=== PATIENT | female | born 1990 | race Caucasian/White ===

== ENCOUNTER → 2018-06-17 10:35 | Outpatient (CLI) | payer OTHER, SELFPAY ==
--- NOTE | 2018-06-17 10:37 | US_ITS ---
US OB transvaginal: INDICATION: Early ITS.REASON: US OB Dates Spotting during ORDERING PHYSICIAN: Tee Hernandez MD PATIENT AGE: 28 years TECHNIQUE: ultrasound transvaginal scanning. COMPARISON: No previous relevant studies. FINDINGS: Very early intrauterine gestation with expected decidual reaction Questionable/possible tiny pole with a CRL = 0.14 cm. But no heart flicker. No cardiac activity identified. Yolk sac = 0.29 cm. Mean Gestational sac diameter = 1.2 cm ... suggestive of of 2 5 week . Findings will require correlation with serial serum beta-hCG's, To better determine the status of this . It could merely be a very early . The patient has follow-up with Dr. Tom galindo Ovaries appear normal bilaterally. Right ovary measures 3 cm x 1.7 cm does 1.8 cm. Left ovary measures 2.36 cm vessel 0.8 cm x 2 cm. IMPRESSION Very early intrauterine gestation. Mean Gestational sac size 1.2 cm Yolk sac evident, but only very tiny questionable/possible early pole measuring merely 1.4 mm.. No heart flicker identified at this point. Findings require correlation with serum beta-hCG and follow-up to better determine status of this early
== END ==
PROVIDERS: PCP Nurse Practitioner; Visit Provider Nurse Practitioner Obstetrics & Gynecology
DX: O26.841 Uterine size-date discrepancy, first trimester (principal); O26.859 Spotting complicating pregnancy, unspecified trimester
CPT/HCPCS: 76817

== ENCOUNTER → 2018-07-04 15:13 | Outpatient (CLI) | payer OTHER, SELFPAY ==
[2018-07-04 16:13] LABS: Basophils % 0.4 % (0.1-2.0); Eosinophils % 0.4 % (0.1-12.0); Hematocrit 39.6 % (37.0-47.0); Hemoglobin 13.6 g/dL (12.2-16.2); Lymphocytes # 2.1 K/mm3 (0.7-4.5); Lymphocytes % 27.5 % (10-50); Mean Corpuscular HGB Conc 34.3 g/dL (31.8-35.4); Mean Corpuscular Hemoglobin 30.8 pg (27.0-31.2); Mean Corpuscular Volume 89.8 fl (81-99); Mean Platelet Volume 7.9 fl (7.4-10.4); Monocytes # 0.4 K/mm3 (0.1-1.0); Monocytes % 4.7 % (1.7-9.3); Neutrophils # 5.2 K/mm3 (1.8-7.8); Neutrophils % 67.1 % (37.0-80.0); Platelet Count 322 K/mm3 (142-424); Red Blood Count 4.41 M/mm3 (4.20-5.40); Red Cell Distribution Width 12.6 % (11.5-17.5); White Blood Count 7.7 K/mm3 (4.8-10.8)
[2018-07-06 13:55] LABS: Hepatitis B Surface Antigen Negative (Negative); Hepatitis C Antibody <0.1 s/co ratio (0.0-0.9); Rapid Plasma Reagin Ab Titer Non Reactive (NonRea<1:1)
[2018-07-06 13:56] LABS: HIV Screen 4th Generation wRfx Non Reactive (Non Reactive); Rubella Antibodies, IgG 2.26 index (Immune >0.99)
== END ==
PROVIDERS: Visit Provider Nurse Practitioner Obstetrics & Gynecology
DX: Z34.90 Encounter for supervision of normal pregnancy, unspecified, unspecified trimester (principal)
CPT/HCPCS: 36415; 85025; 86592; 86703; 86762; 86850; 87340; 87380; G0432

== ENCOUNTER → 2018-07-19 11:18 | Outpatient (CLI) | payer OTHER, SELFPAY | PROVIDERS: Visit Provider Nurse Practitioner Obstetrics & Gynecology | DX: Z34.90 Encounter for supervision of normal pregnancy, unspecified, unspecified trimester (principal); Z36.0 Encounter for antenatal screening for chromosomal anomalies | CPT/HCPCS: 36415 ==

== ENCOUNTER → 2018-07-22 10:53 | Outpatient (CLI) | payer OTHER, SELFPAY | PROVIDERS: Visit Provider Nurse Practitioner Obstetrics & Gynecology | DX: Z34.90 Encounter for supervision of normal pregnancy, unspecified, unspecified trimester (principal) ==

== ENCOUNTER → 2018-09-27 12:44 | Outpatient (CLI) | payer OTHER, SELFPAY ==
--- NOTE | 2018-09-27 12:49 | US_ITS ---
US OB /maternal detail: INDICATION: ITS.REASON: US OB Complete ORDERING PHYSICIAN: Tee Hernandez MD PATIENT AGE: 28 years TECHNIQUE: ultrasound transabdominal scanning. COMPARISON: No previous relevant studies. FINDINGS: Single viable intrauterine gestation. Cephalic position. Placenta: Anterior High placenta grade 1. There is average amount fluid. The cervix appears satisfactory. Closed and measuring 6 cm in length. Complete survey performed and was unremarkable on the submitted images as in PACS. No discrete anomalies identified on survey imaging by technologist. Active fetus. Three-vessel cord with satisfactory umbilical cord insertion. 4- chamber heart noted. Survey of brain & ventricles unremarkable. Face and neck survey unremarkable. Diaphragm and chest views unremarkable. Abdomen: Both kidneys noted and unremarkable. Stomach noted and satisfactory. Spine: Survey of the spine satisfactory with no anomalies identified nor imaged. Both arms and legs noted. Amniotic Fluid: Adequate. Maternal adnexa: No significant findings. Measurements: Average ultrasound age 20w4d. Gestational Age 20w2d. Estimated due date by ultrasound age 1202/10/2019. Estimated weight 357 grams. BPD = 20w3d OFD = 21w2d HC = 20w2d AC = 20w6d FL = 20w2d Growth Percentile= 57% Heart Rate = 142 Cerebellum = 20w2d Humerus = 20w3d HC/AC is 1.13 (1.09-1.26). CI is 75% (70-86%). FL/BPD is 59%. FL/AC is 21%. IMPRESSION: There is a single live intrauterine gestation in cephalic position. Average ultrasound age is 20 weeks and 4 days. All parameters correlate. No obvious anomalies. Please see above for details
== END ==
PROVIDERS: PCP Nurse Practitioner; Visit Provider Nurse Practitioner Obstetrics & Gynecology
DX: Z36.0 Encounter for antenatal screening for chromosomal anomalies (principal)
CPT/HCPCS: 76811

== ENCOUNTER 2018-10-19 20:01 | Outpatient (CLI) | payer OTHER, SELFPAY ==
[2018-10-19 20:08] VITALS: BMI 28.8
[2018-10-19 20:16] LABS: Microscopic, Urine URINE MICROSCOPIC (MICROSCOPIC)
[2018-10-19 20:36] LABS: Appearance,Urine CLEAR (Clear); Bilirubin,Urine Negative (Negative); Blood, Urine Negative (Negative); Color,Urine YELLOW (Yellow); Glucose,Urine (UA) Negative (Negative); Ketones,Urine Negative (Negative); Leukocyte Esterase,Urine 1+ (Negative); Nitrate,Urine Negative (Negative); Protein,Urine Negative (Negative); Urobilinogen,Urine 0.2 EU/dl (0.2)
[2018-10-19 20:45] LABS: Amphetamine/Metha Screen,Urine Negative ng/mL (<1000); Barbiturates Screen,Urine Negative ng/mL (<200); Benzodiazepines Screen,Urine Negative ng/mL (<200); Cannabinoid Screen,Urine Negative ng/mL (<50); Cocaine Screen,Urine Negative ng/mL (<300); Methadone Screen,Urine Negative ng/mL (<300); Opiate Screen,Urine Negative ng/mL (<300); Phencyclidine Screen,Urine Negative ng/mL (<25)
[2018-10-19 20:47] LABS: Bacteria,Urine Trace /lpf
[2018-10-19 20:52] VITALS: BP 115/61; PULSE 79; RESP 18; TEMP 36.9; O2SAT 96; BMI 28.8
== END 2018-10-19 22:00 | disposition home or self-care (01) ==
LOC: OBOUT 20:02 → OB 20:03
PROVIDERS: PCP Nurse Practitioner; Visit Provider Nurse Practitioner Obstetrics & Gynecology
DX: O23.42 Unspecified infection of urinary tract in pregnancy, second trimester (principal); Z3A.23 23 weeks gestation of pregnancy; M54.5 Low back pain
CPT/HCPCS: 80305; 81001; 87086

== ENCOUNTER 2018-11-12 12:10 | Observation (INO) ==
[2018-11-12 12:28] LABS: Microscopic, Urine URINE MICROSCOPIC (MICROSCOPIC)
[2018-11-12 12:31] LABS: Appearance,Urine CLEAR (Clear); Bilirubin,Urine Negative (Negative); Blood, Urine Negative (Negative); Color,Urine YELLOW (Yellow); Glucose,Urine (UA) Negative (Negative); Ketones,Urine TRACE (Negative); Leukocyte Esterase,Urine Negative (Negative); Protein,Urine Negative (Negative)
[2018-11-12 12:44] LABS: Bacteria,Urine Trace /lpf; WBC,Urine Occasional #/hpf (0-3)
--- NOTE | 2018-11-12 12:45 | Emergency Department Note ---
ED Disposition Clinical Impression: Acute bronchitis, Intractable vomiting with nausea Disposition: Admitted as Observation Condition on Discharge: Serious Instructions: DI for Acute Bronchitis Additional Instructions: Your primary care provider first thing Wednesday. Prescriptions: Cefdinir [Omnicef 300mg Capsule] 300 mg PO BID #14 cap Promethazine HCl [Phenergan 25mg tab] 25 mg PO Q6H PRN #8 tab PRN Reason: Nausea And Vomiting Azithromycin [Z-Kel 250mg Tab*] 250 mg PO UD DOSE PK #6 tab Referrals: Sadia Kohler APRN [Primary Care Provider] - - Critical Care Critical Care Time: No Attestation: On 11/12/18, the high probability of a clinically significant, sudden or life threatening deterioration of the following system(s) required my full and direct attention, intervention and personal management. The time I documented below is in addition to time spent performing reported procedures but includes the following listed in this critical care notation. Medical Decision Making - Medical Records Medical records reviewed: Yes: I reviewed the patient's medical records. - Yung Inquiry Pt receiving controlled substance: No Vital Signs: 11/12/18 12:18 11/12/18 12:47 11/12/18 13:27 Temperature 98.4 F 98.8 F Temperature Source Oral Oral Pulse Rate [Right Radial] 99 H 84 81 Respiratory Rate 18 18 Blood Pressure [Right Arm] 124/65 123/75 119/69 Blood Pressure Mean [Right Arm] 84 91 85 Blood Pressure Source [Right Arm] Automatic Cuff Automatic Cuff Blood Pressure Position [Right Arm] Sitting Sitting 02 Sat by Pulse Oximetry 98 98 99 Oxygen Delivery Method Room Air Room Air 11/12/18 14:12 11/12/18 14:45 11/12/18 14:59 Temperature 98.7 F Temperature Source Oral Pulse Rate [Right Radial] 90 82 75 Respiratory Rate 18 20 Blood Pressure [Right Arm] 109/54 L 100/43 L 95/54 L Blood Pressure Mean [Right Arm] 72 62 67 Blood Pressure Source [Right Arm] Automatic Cuff Automatic Cuff Blood Pressure Position [Right Arm] Sitting Supine 02 Sat by Pulse Oximetry 98 99 98 Oxygen Delivery Method Room Air Room Air 11/12/18 15:30 Temperature Temperature Source Pulse Rate [Right Radial] 84 Respiratory Rate Blood Pressure [Right Arm] 95/50 L Blood Pressure Mean [Right Arm] 65 Blood Pressure Source [Right Arm] Blood Pressure Position [Right Arm] 02 Sat by Pulse Oximetry 100 Oxygen Delivery Method - Lab Data Lab Results 11/12/18 12:20: Urine Color Yellow, Urine Appearance Clear, Urine pH 8.0, Ur Specific [place] 1.010, Urine Protein Negative, Urine Glucose (UA) Negative, Urine Ketones Trace, Urine Blood Negative, Urine Nitrate Negative, Urine Bilirubin Negative, Urine Urobilinogen 2.0, Ur Leukocyte Esterase Negative, Urine RBC None, Urine WBC Occasional, Ur Squamous Epith Cells 5-10, Urine Bacteria Trace 11/12/18 12:26: Influenza Type A Ag Negative, Influenza Type B Ag Negative 11/12/18 12:26: Group A Strep Rapid Negative 11/12/18 12:42: WBC 6.9, RBC 3.58 L, Hgb 11.1 L, Hct 33.4 L, MCV 93.4, MCH 31.0, MCHC 33.2, RDW 12.6, Plt Count 335, MPV 7.9, Neut % (Auto) 85.6 H, Lymph % (Auto) 9.9 L, [place] % (Auto) 4.1, Eos % (Auto) 0.2, Baso % (Auto) 0.2, Neut # (Auto) 5.9, Lymph # (Auto) 0.7, [place] # (Auto) 0.3, Eos # (Auto) 0.0, Baso # (Auto) 0.0, Total Counted 100, Neutrophils % (Manual) 84 H, Lymphocytes % (Manual) 11, Monocytes % (Manual) 5, Platelet Estimate Normal, RBC Morphology Normal 11/12/18 12:42: Sodium 136, Potassium 3.5, Chloride 102, Carbon Dioxide 23, Anio n Gap 14.5, BUN 4 L, Creatinine 0.54 L, Estimated Creat Clear 185, Estimated GFR 133, Est GFR ( Amer) 160, Glucose 95, Calcium 8.6, Total Bilirubin 0.2, AST 17, ALT 27, Alkaline Phosphatase 117 H, Total Protein 6.5, Albumin 2.7 L, Globulin 3.8 H, Albumin/Globulin Ratio 0.7 L Result diagrams: 11/12/18 12:42 11/12/18 12:42 Orders (Tests/Meds): ED MEDICATIONS Discontinued Medications Generic Name Dose Route Start Last Admin Trade Name Freq PRN Reason Stop Dose Admin Acetaminophen 1,000 mg 11/12/18 13:06 11/12/18 13:10 Tylenol 500mg Tablet PO 11/12/18 13:07 1,000 mg ONCE ONE Administration Sodium Chloride 1,000 mls @ 999 mls/hr 11/12/18 12:30 11/12/18 12:47 Sod Chlor 0.9% 1000ml Bag IV 11/12/18 13:30 999 mls/hr .Q1H1M TUNG Administration Sodium Chloride 1,000 mls @ 999 mls/hr 11/12/18 14:15 11/12/18 14:13 Sod Chlor 0.9% 1000ml Bag IV 11/12/18 15:15 999 mls/hr .Q1H1M TUNG Administration Ceftriaxone Sodium 1 gm/ 50 mls @ 100 mls/hr 11/12/18 14:45 11/12/18 14:58 Sodium Chloride IV 11/12/18 15:14 100 mls/hr ONCE ONE Administration Protocol Azithromycin 500 mg/ Sodium 250 mls @ 250 mls/hr 11/12/18 15:00 11/12/18 15:38 Chloride IV 11/12/18 15:01 250 mls/hr ONCE ONE Administration Protocol Promethazine HCl 25 mg 11/12/18 14:12 11/12/18 14:13 Phenergan 25mg/Ml 1ml Vial IV 11/12/18 14:13 25 mg ONCE ONE Administration Sodium Chloride 25 ml 11/12/18 14:12 11/12/18 14:13 Sod Chlor 0.9% 25ml Bag IV 11/12/18 14:13 25 ml ONCE ONE Administration ORDERS Category Date Time Status Chest XR 2 view (NOT portable) [XR chest 2V] Stat Exams 11/12/18 13:49 Taken Strep Screen Confirmation Stat Micro 11/12/18 12:26 Received - Radiology Data #1 Image(s): Chest Image Reviewed: Yes I reviewed the patient's radiology image Supple increased markings in right middle and lower lobe. May be a normal finding but given the fact the patient has wheezing, cough, and a history of fever and chills cover the patient with antibiotics for pneumonia. General Adult HPI - General Chief complaint: Weakness Stated complaint: flu like symptoms 27 weeks Time Seen by Provider: 11/12/18 12:43 Mode of Arrival: Ambulatory Limitations: No Limitations Description of Symptoms (Recalled from ER Triage Doc. by RN): Pt reprots vomiting since approx 1700 yesterday, fever, chills, "charley horses" all over body and body aches. Pt reports she is 26 weeks and 6 days . Pt reports uanable to keep "anything down" since approx 1700 yesterday. - History of Present Illness Onset (ago): day(s) (1) Location: back, upper extremity, lower extremity Radiation: non-radiation Severity: moderate Quality: aching Consistency: constant Relieving factors: none Exacerbating factors: none Associated symptoms: fever/chills, malaise, nausea/vomiting Treatments prior to arrival: none - Related Data Home Medications Medication Instructions Recorded Confirmed Ferrous Sulfate 325 mg PO DAILY 10/19/18 10/19/18 Pnv No.106/Iron/Folate No6/Dha [Ob 1 cap PO DAILY 10/19/18 11/12/18 Complete Gold Softgel] Previous Rx's Medication Instructions Recorded Azithromycin [Z-Kel 250mg Tab*] 250 mg PO UD DOSE PK #6 tab 11/12/18 Cefdinir [Omnicef 300mg Capsule] 300 mg PO BID #14 cap 11/12/18 Promethazine HCl [Phenergan 25mg 25 mg PO Q6H PRN #8 tab 11/12/18 tab] Allergies Allergy/AdvReac Type Severity Reaction Status Date / Time No Known Allergies Allergy Verified 10/17/18 11:00 [facility] History - Hepatitis A Screen Drug use history?: No High risk sexual behaviors?: No History of sexually transmitted infection?: No Currently employed?: No Childcare worker?: No Do you have indoor plumbing?: Yes Do you have electricity?: Yes Attestation statement:: This patient has been screened for Hepatitis A risk factors. I have reviewed the patient's past medical history: Yes Medical History: Reports:: Asthma, Heart Murmur Denies:: Diabetes Mellitus Type 1, Diabetes Mellitus Type 2 Other Medical History: Reports: Anemia Other Surgeries: Yes: Cholecystectomy, Dilation and Curettage. 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 ROS Obtained: Yes Systems reviewed as appropriate & no additional complaints - Constitutional Constitutional: Reports system reviewed and no additional complaints, except as docu, Reports body ache, Reports chills, Reports fatigue, Reports fever(s), Reports malaise, Reports weakness - Eyes Eyes: Reports system reviewed and no additional complaints, except as docu - ENT Ears, Nose, Mouth, and Throat: Reports system reviewed and no additional complaints, except as docu - Cardiovascular Cardiovascular: Reports system reviewed and no additional complaints, except as docu - Respiratory Respiratory: Yes system reviewed and no additional complaints, except as docu - Gastrointestinal Gastrointestingal: Reports: system reviewed and no additional complaints, except as docu, nausea, vomiting - Genitourinary Female Genitourinary: Reports system reviewed and no additional complaints, except as docu - Musculoskeletal Musculoskeletal: Reports system reviewed and no additional complaints, except as docu, Reports muscle aches - Integumentary/Breasts Skin/Breast: Reports system reviewed and no additional complaints, except as docu - Neurologic Neurologic: Reports system reviewed and no additional complaints, except as docu - Endocrine Endocrine: Reports system reviewed and no additional complaints, except as docu - Hematologic/Lymphatic Henatologic/Lymphatic: Reports system reviewed and no additional complaints, except as docu - Allergic/Immunologic Allergic/Immunologic: Reports system reviewed and no additional complaints, except as docu Physical Exam - General General appearance: alert, in distress - Head Head exam: atraumatic, normocephalic, normal inspection - Eye Eye exam: Present: normal appearance, PERRL, EOMI - ENT ENT exam: Present: mucous membranes moist - Neck Neck exam: Present: normal inspection, full ROM, trachea midline. Absent: meningismus, lymphadenopathy - Chest Chest inspection: Present: normal inspection, symmetric chest wall rise. Absent: tenderness - Respiratory Respiratory exam: Present: wheezes - Cardiovascular Cardiovascular exam: Present: regular rate, normal rhythm. Absent: JVD - Abdominal Exam Abdominal exam: Present: soft, normal bowel sounds. Absent: distention, tenderness, guarding - Extremities Exam Extremities exam: Present: normal inspection, full ROM, normal capillary refill. Absent: calf tenderness - Back Exam Back exam: Present: normal inspection. Absent: tenderness - Neurological Exam Neurological exam: Present: alert, oriented X3 - Psychiatric Psychiatric exam: Present: normal affect, normal mood - Skin Skin exam: Present: warm, dry, intact, normal color - Lymphatic Lymphatic Findings: no adenopathy
[2018-11-12 12:51] LABS: Basophils % 0.2 % (0.1-2.0); Eosinophils % 0.2 % (0.1-12.0); Hematocrit 33.4 % (37.0-47.0); Hemoglobin 11.1 g/dL (12.2-16.2); Lymphocytes # 0.7 K/mm3 (0.7-4.5); Lymphocytes % 9.9 % (10-50); Mean Corpuscular HGB Conc 33.2 g/dL (31.8-35.4); Mean Corpuscular Volume 93.4 fl (81-99); Mean Platelet Volume 7.9 fl (7.4-10.4); Monocytes # 0.3 K/mm3 (0.1-1.0); Monocytes % 4.1 % (1.7-9.3); Neutrophils # 5.9 K/mm3 (1.8-7.8); Neutrophils % 85.6 % (37.0-80.0); Platelet Count 335 K/mm3 (142-424); Red Blood Count 3.58 M/mm3 (4.20-5.40); Red Cell Distribution Width 12.6 % (11.5-17.5); White Blood Count 6.9 K/mm3 (4.8-10.8)
[2018-11-12 13:01] LABS: Albumin Level 2.7 gm/dL (3.4-5.0); Albumin/Globulin Ratio 0.7 (1.1-1.8); Anion Gap 14.5 mEq/L (5-15); Bilirubin,Total 0.2 mg/dL (0.2-1.0); Calcium 8.6 mg/dL (8.5-10.1); Globulin 3.8 gm/dl (1.3-3.2); Total Protein,Serum 6.5 gm/dL (6.4-8.2)
[2018-11-12 13:22] LABS: Lymphocytes % 11 % (10-50); Monocytes % 5 % (2-9); Neutrophils % 84 % (42-76); RBC Morphology Normal; Total Cells Counted 100
[2018-11-13 06:47] LABS: Basophils % 0.2 % (0.1-2.0); Eosinophils % 0.1 % (0.1-12.0); Hematocrit 30.9 % (37.0-47.0); Hemoglobin 10.2 g/dL (12.2-16.2); Lymphocytes # 1.2 K/mm3 (0.7-4.5); Lymphocytes % 27.4 % (10-50); Mean Corpuscular HGB Conc 32.9 g/dL (31.8-35.4); Mean Corpuscular Volume 95.7 fl (81-99); Mean Platelet Volume 7.1 fl (7.4-10.4); Monocytes # 0.3 K/mm3 (0.1-1.0); Monocytes % 7.5 % (1.7-9.3); Neutrophils # 2.8 K/mm3 (1.8-7.8); Neutrophils % 64.8 % (37.0-80.0); Platelet Count 313 K/mm3 (142-424); Red Blood Count 3.23 M/mm3 (4.20-5.40); Red Cell Distribution Width 12.7 % (11.5-17.5); White Blood Count 4.3 K/mm3 (4.8-10.8)
[2018-11-13 07:04] LABS: Anion Gap 13.2 mEq/L (5-15); Calcium 8.4 mg/dL (8.5-10.1)
[2018-11-13 09:15] VITALS: BP 107/55
--- NOTE | 2018-11-13 09:44 | History & Physical Report ---
*Admission Date: 11/12/18 *Chief complaint: Cough and nausea vomiting *History of present illness: She is a 28-year-old 6 para 4 aborta 1 who was 30 weeks gestational age. She complains of intractable nausea and vomiting. She also had a cough. Chest x-ray revealed some hazy markings in the right midlung possibly consistent with early pneumonia. As result of the nausea and vomiting and dehydration we elected to admit her and she was started on IV antibiotics as well as Phenergan and fluids. [facility] History I have reviewed the patient's past medical history: Yes Medical History: Reports:: Asthma, Heart Murmur Denies:: Diabetes Mellitus Type 1, Diabetes Mellitus Type 2 *Have you ever received a pneumonia vaccine?: No *Have you received a flu vaccine this season?: No Other Medical History: Reports: Anemia Other Surgeries: Yes: Cholecystectomy, Dilation and Curettage. 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 Review of Systems - Review of Systems Review of systems:: pertinent systems reviewed and negative unless documented below - *Neurologic Reports weakness Meds Allergies Allergy/AdvReac Type Severity Reaction Status Date / Time No Known Allergies Allergy Verified 10/17/18 11:00 Exam Vital signs and Labs for Last 24 Hours: Temp Pulse Resp BP Pulse Ox 98.1 F 76 16 107/55 L 98 11/13/18 09:00 11/13/18 09:00 11/13/18 09:00 11/13/18 09:00 11/13/18 09:00 Laboratory Results - last 24 hr 11/12/18 12:20: Urine Color Yellow, Urine Appearance Clear, Urine pH 8.0, Ur Specific [place] 1.010, Urine Protein Negative, Urine Glucose (UA) Negative, Urine Ketones Trace, Urine Blood Negative, Urine Nitrate Negative, Urine Bilirubin Negative, Urine Urobilinogen 2.0, Ur Leukocyte Esterase Negative, Urine RBC None, Urine WBC Occasional, Ur Squamous Epith Cells 5-10, Urine Bacteria Trace 11/12/18 12:26: Influenza Type A Ag Negative, Influenza Type B Ag Negative 11/12/18 12:26: Group A Strep Rapid Negative 11/12/18 12:42: WBC 6.9, RBC 3.58 L, Hgb 11.1 L, Hct 33.4 L, MCV 93.4, MCH 31.0, MCHC 33.2, RDW 12.6, Plt Count 335, MPV 7.9, Neut % (Auto) 85.6 H, Lymph % (Auto) 9.9 L, [place] % (Auto) 4.1, Eos % (Auto) 0.2, Baso % (Auto) 0.2, Neut # (Auto) 5.9, Lymph # (Auto) 0.7, [place] # (Auto) 0.3, Eos # (Auto) 0.0, Baso # (Auto) 0.0, Total Counted 100, Neutrophils % (Manual) 84 H, Lymphocytes % ([place]) 11, Monocytes % (Manual) 5, Platelet Estimate Normal, RBC Morphology Normal 11/12/18 12:42: Sodium 136, Potassium 3.5, Chloride 102, Carbon Dioxide 23, Anion Gap 14.5, BUN 4 L, Creatinine 0.54 L, Estimated Creat Clear 185, Estimated GFR 133, Est GFR ( Amer) 160, Glucose 95, Calcium 8.6, Total Bilirubin 0.2, AST 17, ALT 27, Alkaline Phosphatase 117 H, Total Protein 6.5, Albumin 2.7 L, Globulin 3.8 H, Albumin/Globulin Ratio 0.7 L 11/13/18 06:00: WBC 4.3 L D, RBC 3.23 L, Hgb 10.2 L, Hct 30.9 L, MCV 95.7, MCH 31.5 H, MCHC 32.9, RDW 12.7, Plt Count 313, MPV 7.1 L, Neut % (Auto) 64.8, Lymph % (Auto) 27.4, [place] % (Auto) 7.5, Eos % (Auto) 0.1, Baso % (Auto) 0.2, Neut # (Auto) 2.8, Lymph # (Auto) 1.2, [place] # (Auto) 0.3, Eos # (Auto) 0.0, Baso # (Auto) 0.0 11/13/18 06:00: Sodium 139, Potassium 4.2, Chloride 107, Carbon Dioxide 23, Anion Gap 13.2, BUN 2 L D, Creatinine 0.43 L D, Estimated Creat Clear 233, Estimated GFR 172, Est GFR ( Amer) 209 D, Glucose 99, Calcium 8.4 L I & O for Last 24 hours: Intake & Output 11/10/18 11/11/18 11/12/18 11/13/18 11:59 11:59 11:59 11:59 Intake Total 1999 Balance 1999 Weight 170 lb - Constitutional no acute distress - *Routine HEENT Exam Head: Present: normocephalic Eye: Present: EOMI, PERRL ENT: Present: mucous membranes moist - *Routine Neck Exam Present: supple, full ROM - *Routine Respiratory Exam Absent: accessory muscle use (good air entry bilaterally), wheezes, crackles - *Routine Cardiovascular Exam Present: RRR. Absent: murmur - *Routine Abdominal Exam Present: soft, normoactive bowel sounds. Absent: tenderness, rebound, guarding, mass - *Routine Rectal Exam Patient deferred: visual exam, digital exam - *Routine Exam Patient deferred: external exam, groin exam, perineal exam - *Routine Extremities Exam Present: full ROM. Absent: cyanosis, edema, calf tenderness - *Routine Skin Exam Present: intact (good color) - *Routine Neurological Exam Present: alert, oriented X3 - Routine Psychiatric Exam Present: normal affect Assessment and Plan (1) Acute bronchitis Current visit: Yes Status: Acute Category: Medical Code(s): J20.9 - Acute bronchitis, unspecified (2) Intractable vomiting with nausea Current visit: Yes Status: Acute Category: Medical Code(s): R11.2 - Nausea with vomiting, unspecified (3) Current visit: No Status: Acute Qualifiers: Category: Medical Code(s): Z34.90 - Encounter for supervision of normal , unspecified, unspecified trimester (4) Asthma affecting in third trimester Current visit: Yes Status: Acute Category: Medical Code(s): O99.513 - Diseases of the respiratory system complicating , third trimester; J45.909 - Unspecified asthma, uncomplicated - Assessment and plan all Dx Assessment and Plan for all problems:: She is admitted for control of her nausea vomiting as well as IV antibiotics for her early pneumonia. She will be started on steroids as well for her acute bronchitis and wheeziness. She will be given antiemetics.
--- NOTE | 2018-11-13 09:48 | Discharge Summary ---
General - General Admission date:: 11/12/18 Discharge date: 11/13/18 HPI HPI: She is a 28-year-old 6 para 4 aborta 1 who was 30 weeks gestational age. She complains of intractable nausea and vomiting. She also had a cough. Chest x-ray revealed some hazy markings in the right midlung possibly consistent with early pneumonia. As result of the nausea and vomiting and dehydration we elected to admit her and she was started on IV antibiotics as well as Phenergan and fluids. Hospital Course Hospital Course: She was started on IV Rocephin as well as IV azithromycin. She is remained afebrile throughout her hospitalization. She has been given fluids and Phenergan and she has no further episodes of nausea or vomiting. She continues to be a little wheezy. She is taking steroids. She has a history of asthma she says. She says that she normally takes a puffer at home. She has not been taking this. Her blood counts and electrolytes are all normal. Objective Vital signs: Temp Pulse Resp BP Pulse Ox 98.1 F 76 16 107/55 L 98 11/13/18 09:00 11/13/18 09:00 11/13/18 09:00 11/13/18 09:00 11/13/18 09:00 no acute distress - *Routine HEENT Exam Head: Present: normocephalic Eye: Present: EOMI, PERRL - *Routine Neck Exam Present: full ROM - *Routine Respiratory Exam Present: rhonchi, wheezes - *Routine Cardiovascular Exam Present: RRR - *Routine Abdominal Exam Present: soft Results Labs on day of discharge: Labs from last 24 hours 11/13/18 11/13/18 11/12/18 06:00 06:00 12:42 WBC 4.3 L D RBC 3.23 L Hgb 10.2 L Hct 30.9 L MCV 95.7 MCH 31.5 H MCHC 32.9 RDW 12.7 Plt Count 313 MPV 7.1 L Neut % (Auto) 64.8 Lymph % (Auto) 27.4 Wake % (Auto) 7.5 Eos % (Auto) 0.1 Baso % (Auto) 0.2 Neut # (Auto) 2.8 Lymph # (Auto) 1.2 Wake # (Auto) 0.3 Eos # (Auto) 0.0 Baso # (Auto) 0.0 Total Counted Neutrophils % (Manual) Lymphocytes % (Manual) Monocytes % (Manual) Platelet Estimate RBC Morphology Sodium 139 136 Potassium 4.2 3.5 Chloride 107 102 Carbon Dioxide 23 23 Anion Gap 13.2 14.5 BUN 2 L D 4 L Creatinine 0.43 L D 0.54 L Estimated Creat Clear 233 185 Estimated GFR 172 133 Est GFR ( Amer) 209 D 160 Glucose 99 95 Calcium 8.4 L 8.6 Total Bilirubin 0.2 AST 17 ALT 27 Alkaline Phosphatase 117 H Total Protein 6.5 Albumin 2.7 L Globulin 3.8 H Albumin/Globulin Ratio 0.7 L Urine Color Urine Appearance Urine pH Ur Specific [place] Urine Protein Urine Glucose (UA) Urine Ketones Urine Blood Urine Nitrate Urine Bilirubin Urine Urobilinogen Ur Leukocyte Esterase Urine RBC Urine WBC Ur Squamous Epith Cells Urine Bacteria Influenza Type A Ag Influenza Type B Ag Group A Strep Rapid 11/12/18 11/12/18 11/12/18 12:42 12:26 12:26 WBC 6.9 RBC 3.58 L Hgb 11.1 L Hct 33.4 L MCV 93.4 MCH 31.0 MCHC 33.2 RDW 12.6 Plt Count 335 MPV 7.9 Neut % (Auto) 85.6 H Lymph % (Auto) 9.9 L Wake % (Auto) 4.1 Eos % (Auto) 0.2 Baso % (Auto) 0.2 Neut # (Auto) 5.9 Lymph # (Auto) 0.7 Wake # (Auto) 0.3 Eos # (Auto) 0.0 Baso # (Auto) 0.0 Total Counted 100 Neutrophils % (Manual) 84 H Lymphocytes % (Manual) 11 Monocytes % (Manual) 5 Platelet Estimate Normal RBC Morphology Normal Sodium Potassium Chloride Carbon Dioxide Anion Gap BUN Creatinine Estimated Creat Clear Estimated GFR Est GFR ( Amer) Glucose Calcium Total Bilirubin AST ALT Alkaline Phosphatase Total Protein Albumin Globulin Albumin/Globulin Ratio Urine Color Urine Appearance Urine pH Ur Specific [place] Urine Protein Urine Glucose (UA) Urine Ketones Urine Blood Urine Nitrate Urine Bilirubin Urine Urobilinogen Ur Leukocyte Esterase Urine RBC Urine WBC Ur Squamous Epith Cells Urine Bacteria Influenza Type A Ag Negative Influenza Type B Ag Negative Group A Strep Rapid Negative 11/12/18 12:20 WBC RBC Hgb Hct MCV MCH MCHC RDW Plt Count MPV Neut % (Auto) Lymph % (Auto) Wake % (Auto) Eos % (Auto) Baso % (Auto) Neut # (Auto) Lymph # (Auto) Wake # (Auto) Eos # (Auto) Baso # (Auto) Total Counted Neutrophils % (Manual) Lymphocytes % (Manual) Monocytes % (Manual) Platelet Estimate RBC Morphology Sodium Potassium Chloride Carbon Dioxide Anion Gap BUN Creatinine Estimated Creat Clear Estimated GFR Est GFR ( Amer) Glucose Calcium Total Bilirubin AST ALT Alkaline Phosphatase Total Protein Albumin Globulin Albumin/Globulin Ratio Urine Color Yellow Urine Appearance Clear Urine pH 8.0 Ur Specific [place] 1.010 Urine Protein Negative Urine Glucose (UA) Negative Urine Ketones Trace Urine Blood Negative Urine Nitrate Negative Urine Bilirubin Negative Urine Urobilinogen 2.0 Ur Leukocyte Esterase Negative Urine RBC None Urine WBC Occasional Ur Squamous Epith Cells 5-10 Urine Bacteria Trace Influenza Type A Ag Influenza Type B Ag Group A Strep Rapid DS: Diagnosis - Discharge Diagnosis (1) Acute bronchitis Status: Acute (2) Intractable vomiting with nausea Status: Acute (3) Status: Acute (4) Asthma affecting in third trimester Status: Acute Discharge Plan - Patient Discharge Instructions ACTIVITY: Continue current activity DIET: continue same diet Additional Instructions: Drink plenty fluids, take medications as prescribed. Patient Instructions: Hyperemesis Gravidarum, DI for Acute Bronchitis, Antepartum Care - Follow up Plan Follow up with: Tee Hernandez MD [Staff Physician] - 11/16/18 10:30 am Disposition: Home, Self-[facility] Medications: Home Medications Medication Instructions Recorded Confirmed Type Promethazine HCl [Phenergan 25mg 25 mg PO Q6HP PRN #14 tab 11/13/18 Rx tab] RX: Azithromycin [Z-Kel 250mg Tab*] 250 mg PO UD DOSE PK #6 tab 11/13/18 Rx methylPREDNISolone [Medrol 4mg 4 mg PO DIRECTED #21 tab 11/13/18 Rx tab] Prescriptions/Medication Reconciliation: New Promethazine HCl [Phenergan 25mg tab] 25 mg PO Q6HP PRN #14 tab PRN Reason: Nausea And Vomiting RX: Azithromycin [Z-Kel 250mg Tab*] 250 mg PO UD DOSE PK #6 tab methylPREDNISolone [Medrol 4mg tab] 4 mg PO DIRECTED #21 tab - Problem Reconciliation Problems Reviewed?: Yes
== END 2018-11-13 11:18 | disposition home or self-care (01) ==
LOC: OB 12:10 → ER 12:10 → OB 16:32
PROVIDERS: ADMIT Nurse Practitioner Obstetrics & Gynecology; ATTEND Nurse Practitioner Obstetrics & Gynecology
CPT/HCPCS: 36415; 71020; 71046; 80048; 80053; 81001; 85007; 85025; 87275; 87276; 87430; 96365; 96366; 96367; 99283; G0378; J0456

== ENCOUNTER → 2018-11-16 09:54 | Outpatient (CLI) | payer OTHER, SELFPAY ==
[2018-11-16 10:57] LABS: Glucose,Fasting 88 mg/dL (60-105)
[2018-11-16 12:40] LABS: Glucose 1 Hour 143 mg/dL (74-106)
== END ==
PROVIDERS: Visit Provider Nurse Practitioner Obstetrics & Gynecology
DX: Z34.90 Encounter for supervision of normal pregnancy, unspecified, unspecified trimester (principal)
CPT/HCPCS: 36415; 82951

== ENCOUNTER 2018-11-18 09:37 | Outpatient (CLI) | payer OTHER, SELFPAY ==
[2018-11-18 10:02] VITALS: BP 106/59; PULSE 74; RESP 18; TEMP 37.1; O2SAT 95
[2018-11-18 10:18] LABS: Microscopic, Urine URINE MICROSCOPIC (MICROSCOPIC)
[2018-11-18 10:24] LABS: Appearance,Urine SL CLOUDY (Clear); Bilirubin,Urine Negative (Negative); Blood, Urine 3+ (Negative); Color,Urine YELLOW (Yellow); Glucose,Urine (UA) Negative (Negative); Ketones,Urine Negative (Negative); Leukocyte Esterase,Urine 3+ (Negative); Nitrate,Urine Negative (Negative); Protein,Urine Negative (Negative); Urobilinogen,Urine 0.2 EU/dl (0.2)
[2018-11-18 10:27] LABS: Amphetamine/Metha Screen,Urine Negative ng/mL (<1000); Barbiturates Screen,Urine Negative ng/mL (<200); Benzodiazepines Screen,Urine Negative ng/mL (<200); Cannabinoid Screen,Urine Negative ng/mL (<50); Cocaine Screen,Urine Negative ng/mL (<300); Methadone Screen,Urine Negative ng/mL (<300); Opiate Screen,Urine Negative ng/mL (<300); Phencyclidine Screen,Urine Negative ng/mL (<25)
[2018-11-18 10:38] LABS: Bacteria,Urine 1+ /lpf; WBC,Urine 20-50 #/hpf (0-3)
== END 2018-11-18 10:47 | disposition home or self-care (01) ==
LOC: OBOUT 09:39 → OB 09:39
PROVIDERS: PCP Nurse Practitioner; Visit Provider Nurse Practitioner Obstetrics & Gynecology
DX: O60.03 Preterm labor without delivery, third trimester (principal); Z3A.27 27 weeks gestation of pregnancy
CPT/HCPCS: 59025; 80305; 81001; 87086

== ENCOUNTER 2018-11-25 12:48 | Outpatient (CLI) | payer OTHER, SELFPAY ==
[2018-11-25 13:22] VITALS: BP 128/74; PULSE 79; RESP 18; TEMP 36.6; O2SAT 98
== END 2018-11-25 13:41 | disposition home or self-care (01) ==
LOC: INF 12:49
PROVIDERS: PCP Nurse Practitioner; Referring Provider Nurse Practitioner Obstetrics & Gynecology; Visit Provider Nurse Practitioner
DX: O99.513 Diseases of the respiratory system complicating pregnancy, third trimester (principal); J45.909 Unspecified asthma, uncomplicated
CPT/HCPCS: 96372

== ENCOUNTER → 2018-11-29 12:01 | Outpatient (CLI) | payer OTHER, SELFPAY ==
[2018-11-29 13:50] LABS: Glucose 1 Hour 163 mg/dL (74-106); Glucose,Fasting 77 mg/dL (60-105)
[2018-11-29 20:16] LABS: Glucose 2 Hour 162 mg/dL (74-106)
[2018-11-29 20:28] LABS: Glucose 3 Hour 142 mg/dL (74-106)
== END ==
PROVIDERS: Visit Provider Nurse Practitioner Obstetrics & Gynecology
DX: Z34.90 Encounter for supervision of normal pregnancy, unspecified, unspecified trimester (principal)
CPT/HCPCS: 36415; 82951

== ENCOUNTER 2018-12-07 15:43 | Outpatient (CLI) | payer OTHER, SELFPAY ==
[2018-12-07 15:57] VITALS: BP 100/56; PULSE 80; RESP 18; TEMP 36.8; O2SAT 95; BMI 29.5
== END 2018-12-07 16:07 | disposition home or self-care (01) ==
LOC: OBOUT 15:44 → OB 15:45
PROVIDERS: PCP Nurse Practitioner; Visit Provider Nurse Practitioner Obstetrics & Gynecology
DX: O99.513 Diseases of the respiratory system complicating pregnancy, third trimester (principal); J45.909 Unspecified asthma, uncomplicated; Z3A.30 30 weeks gestation of pregnancy
CPT/HCPCS: 96372

== ENCOUNTER 2018-12-08 15:53 | Outpatient (CLI) | payer OTHER, SELFPAY ==
[2018-12-08 15:59] VITALS: BP 113/65; PULSE 104; RESP 18; TEMP 36.7; O2SAT 95; BMI 29.5
== END 2018-12-08 16:04 | disposition home or self-care (01) ==
LOC: OBOUT 15:54 → OB 15:55
PROVIDERS: PCP Nurse Practitioner; Visit Provider Nurse Practitioner Obstetrics & Gynecology
DX: O99.513 Diseases of the respiratory system complicating pregnancy, third trimester (principal); J45.909 Unspecified asthma, uncomplicated; Z3A.30 30 weeks gestation of pregnancy
CPT/HCPCS: 96372

== ENCOUNTER → 2018-12-28 13:08 | Outpatient (CLI) | payer OTHER, SELFPAY ==
--- NOTE | 2018-12-28 13:10 | US_ITS ---
PROCEDURE: US OB BPP W/FET-MAT S/D CLINICAL INDICATION: US OB BPP/Growth for LGA and check Vag spotting COMPARISON: OBFEMAT US OB /maternal detail from 09/27/2018 FINDINGS: There is a single live fetus present which is in cephalic presentation. Placenta is anterior and grade 2. Average ultrasound age is 34 weeks 2 days. Estimated weight 2343 g which is 60 second percentile. All parameters correlate BPD 34 weeks 6 days, OFD 34 weeks 6 days, HC 34 weeks 3 days, AC 34 weeks 2 days, FL 33 weeks 3 days. Heart rate is 138 beats per minute. Umbilical artery SD ratio is 2.8 with a resistive index of 0.65. LENARD is 13 cm. Cervical length is low at 2 cm and 1.7 cm with Valsalva. HC/AC is 1.02 CI is 0.8 FL/BPD is 0.75 FL/AC is 0.21 IMPRESSION: Live IUP at 34 weeks 2 days. All parameters correlate. Unremarkable Doppler evaluation of the umbilical artery. Cervical length is low at 2 cm. Please see above for detail Dictated by: Godfrey Vanegas MD 12/28/2018 15:04 Electronically signed by Godfrey Vanegas MD in [place] 12/28/2018 15:04
== END ==
PROVIDERS: Visit Provider Nurse Practitioner Obstetrics & Gynecology
DX: O26.853 Spotting complicating pregnancy, third trimester (principal); O36.63X1 Maternal care for excessive fetal growth, third trimester, fetus 1; Z3A.33 33 weeks gestation of pregnancy
CPT/HCPCS: 76819

== ENCOUNTER 2019-01-03 12:02 | Outpatient (CLI) | payer OTHER, SELFPAY ==
[2019-01-03 12:13] VITALS: BP 112/64; PULSE 92; RESP 18; TEMP 36.8; O2SAT 97; BMI 30.5
[2019-01-03 12:32] LABS: Microscopic, Urine URINE MICROSCOPIC (MICROSCOPIC)
[2019-01-03 12:34] LABS: Appearance,Urine CLEAR (Clear); Bilirubin,Urine Negative (Negative); Blood, Urine Negative (Negative); Color,Urine YELLOW (Yellow); Glucose,Urine (UA) Negative (Negative); Ketones,Urine Negative (Negative); Leukocyte Esterase,Urine Negative (Negative); Nitrate,Urine Negative (Negative); Protein,Urine Negative (Negative); Specific Gravity, Urine <= 1.005 (1.005-1.030); Urobilinogen,Urine 0.2 EU/dl (0.2)
[2019-01-03 12:46] LABS: Bacteria,Urine Trace /lpf
[2019-01-03 12:52] LABS: Amphetamine/Metha Screen,Urine Negative ng/mL (<1000); Barbiturates Screen,Urine Negative ng/mL (<200); Benzodiazepines Screen,Urine Negative ng/mL (<200); Cannabinoid Screen,Urine Negative ng/mL (<50); Cocaine Screen,Urine Negative ng/mL (<300); Methadone Screen,Urine Negative ng/mL (<300); Opiate Screen,Urine Negative ng/mL (<300); Phencyclidine Screen,Urine Negative ng/mL (<25)
== END 2019-01-03 16:04 | disposition home or self-care (01) ==
LOC: OBOUT 12:03 → OB 12:04
PROVIDERS: PCP Nurse Practitioner; Visit Provider Nurse Practitioner Obstetrics & Gynecology
DX: O47.03 False labor before 37 completed weeks of gestation, third trimester (principal); Z3A.34 34 weeks gestation of pregnancy
CPT/HCPCS: 59025; 80305; 81001; 96360; J0595

== ENCOUNTER → 2019-01-09 16:57 | Outpatient (CLI) | payer OTHER, SELFPAY | PROVIDERS: Visit Provider Nurse Practitioner Obstetrics & Gynecology | DX: Z34.90 Encounter for supervision of normal pregnancy, unspecified, unspecified trimester (principal) | CPT/HCPCS: 86403 ==

== ENCOUNTER 2019-01-24 14:12 | Outpatient (CLI) | payer OTHER, SELFPAY ==
[2019-01-24 14:21] VITALS: BMI 31.2
[2019-01-24 14:28] LABS: Microscopic, Urine URINE MICROSCOPIC (MICROSCOPIC)
[2019-01-24 14:31] VITALS: BP 130/70; PULSE 91; RESP 18; TEMP 36.9; O2SAT 99; BMI 31.2
[2019-01-24 14:53] LABS: Appearance,Urine CLEAR (Clear); Bilirubin,Urine Negative (Negative); Blood, Urine Negative (Negative); Color,Urine YELLOW (Yellow); Glucose,Urine (UA) Negative (Negative); Ketones,Urine Negative (Negative); Leukocyte Esterase,Urine TRACE (Negative); Nitrate,Urine Negative (Negative); Protein,Urine Negative (Negative); Specific Gravity, Urine 1.015 (1.005-1.030); Urobilinogen,Urine 0.2 EU/dl (0.2)
[2019-01-24 14:58] LABS: Amphetamine/Metha Screen,Urine Negative ng/mL (<1000); Barbiturates Screen,Urine Negative ng/mL (<200); Benzodiazepines Screen,Urine Negative ng/mL (<200); Cannabinoid Screen,Urine Negative ng/mL (<50); Cocaine Screen,Urine Negative ng/mL (<300); Methadone Screen,Urine Negative ng/mL (<300); Opiate Screen,Urine Positive ng/mL (<300); Phencyclidine Screen,Urine Negative ng/mL (<25)
[2019-01-24 16:39] LABS: Bacteria,Urine Trace /lpf
== END 2019-01-24 15:30 | disposition home or self-care (01) ==
LOC: OBOUT 14:13 → OB 14:13
PROVIDERS: PCP Nurse Practitioner; Visit Provider Nurse Practitioner Obstetrics & Gynecology
DX: O60.03 Preterm labor without delivery, third trimester (principal); Z3A.37 37 weeks gestation of pregnancy
CPT/HCPCS: 59025; 80305; 81001

== ENCOUNTER → 2019-02-01 10:21 | Outpatient (CLI) | payer OTHER, SELFPAY ==
--- NOTE | 2019-02-01 10:23 | US_ITS ---
PROCEDURE: US OB FOLLOW UP CLINICAL INDICATION: US OB BPP Growth- SGA COMPARISON: US OB BPP W/FET-MAT S/D from 12/28/2018 FINDINGS: There is a single live fetus which is in cephalic presentation. heart and body motion noted within FHR 141 beats per minute. Average ultrasound age is 37 weeks 2 days. Following parameters are obtained. BPD 38 weeks 3 days, HC 39 weeks 3 days, AC 34 weeks 3 days, FL 36 weeks 6 days. Biophysical profile is 8 of 8. Amniotic fluid index is normal at 10 cm. Estimated weight is 2801 g which is 11th percentile. The placenta is anterior and grade 2. Biophysical profile is 8 of 8. IMPRESSION: There is a single live fetus which is in cephalic presentation. Average ultrasound age is 37 weeks 2 days. Parameters correlate except for the abdominal circumference which is low at 34 weeks 3 days. Biophysical profile is 8 of 8. Amniotic fluid index is normal at 10 cm. Estimated weight is 2801 g which is 11th percentile which is borderline for small for gestational age/IUGR. The placenta is anterior and grade 2. Biophysical profile is 8 of 8. Dictated by: Godfrey Vanegas MD 02/02/2019 16:00 Electronically signed by Godfrey Vanegas MD in [place] 02/02/2019 16:00
== END ==
PROVIDERS: Visit Provider Nurse Practitioner Obstetrics & Gynecology
DX: O36.5990 Maternal care for other known or suspected poor fetal growth, unspecified trimester, not applicable or unspecified (principal)
CPT/HCPCS: 76816; 76819

== ENCOUNTER 2019-02-04 14:03 | Outpatient (CLI) | payer OTHER, SELFPAY ==
[2019-02-04 14:07] VITALS: BMI 30.9
[2019-02-04 14:27] VITALS: BP 121/72; PULSE 88; RESP 20; TEMP 36.6; O2SAT 96; BMI 30.9
[2019-02-04 14:34] LABS: Microscopic, Urine URINE MICROSCOPIC (MICROSCOPIC)
[2019-02-04 14:41] LABS: Appearance,Urine CLEAR (Clear); Bilirubin,Urine Negative (Negative); Blood, Urine Negative (Negative); Color,Urine YELLOW (Yellow); Glucose,Urine (UA) Negative (Negative); Ketones,Urine Negative (Negative); Leukocyte Esterase,Urine 1+ (Negative); Nitrate,Urine Negative (Negative); Protein,Urine Negative (Negative); Urobilinogen,Urine 0.2 EU/dl (0.2)
[2019-02-04 14:56] LABS: Bacteria,Urine 1+ /lpf; RBC,Urine Occasional #/hpf (0-3)
[2019-02-04 15:05] LABS: Amphetamine/Metha Screen,Urine Negative ng/mL (<1000); Barbiturates Screen,Urine Negative ng/mL (<200); Benzodiazepines Screen,Urine Negative ng/mL (<200); Cannabinoid Screen,Urine Negative ng/mL (<50); Cocaine Screen,Urine Negative ng/mL (<300); Methadone Screen,Urine Negative ng/mL (<300); Opiate Screen,Urine Negative ng/mL (<300); Phencyclidine Screen,Urine Negative ng/mL (<25)
== END 2019-02-04 15:15 | disposition home or self-care (01) ==
LOC: OBOUT 14:06 → OB 14:07
PROVIDERS: PCP Nurse Practitioner; Visit Provider Obstetrics & Gynecology
DX: O26.893 Other specified pregnancy related conditions, third trimester (principal); Z3A.38 38 weeks gestation of pregnancy; R10.2 Pelvic and perineal pain
CPT/HCPCS: 59025; 80305; 81001; 87086

== ENCOUNTER 2019-02-06 05:16 | Inpatient (IN) ==
[2019-02-06 06:18] LABS: Basophils % 0.3 % (0.1-2.0); Eosinophils # 0.1 K/mm3 (0.0-0.4); Eosinophils % 0.5 % (0.1-12.0); Hematocrit 34.9 % (37.0-47.0); Hemoglobin 11.2 g/dL (12.2-16.2); Lymphocytes # 2.8 K/mm3 (0.7-4.5); Lymphocytes % 28.1 % (10-50); Mean Corpuscular HGB Conc 32.1 g/dL (31.8-35.4); Mean Corpuscular Volume 91.8 fl (81-99); Mean Platelet Volume 8.5 fl (7.4-10.4); Monocytes # 0.6 K/mm3 (0.1-1.0); Monocytes % 6.1 % (1.7-9.3); Neutrophils # 6.4 K/mm3 (1.8-7.8); Platelet Count 411 K/mm3 (142-424); Red Cell Distribution Width 13.4 % (11.5-17.5); White Blood Count 9.8 K/mm3 (4.8-10.8)
[2019-02-06 06:42] LABS: Microscopic, Urine URINE MICROSCOPIC (MICROSCOPIC)
[2019-02-06 06:44] LABS: Appearance,Urine CLEAR (Clear); Bilirubin,Urine Negative (Negative); Blood, Urine Negative (Negative); Color,Urine YELLOW (Yellow); Glucose,Urine (UA) Negative (Negative); Ketones,Urine Negative (Negative); Leukocyte Esterase,Urine 2+ (Negative); Protein,Urine Negative (Negative); Specific Gravity, Urine <= 1.005 (1.005-1.030); Urobilinogen,Urine 0.2 EU/dl (0.2)
[2019-02-06 06:53] LABS: Amphetamine/Metha Screen,Urine Negative ng/mL (<1000); Barbiturates Screen,Urine Negative ng/mL (<200); Benzodiazepines Screen,Urine Negative ng/mL (<200); Cannabinoid Screen,Urine Negative ng/mL (<50); Cocaine Screen,Urine Negative ng/mL (<300); Methadone Screen,Urine Negative ng/mL (<300); Opiate Screen,Urine Negative ng/mL (<300); Phencyclidine Screen,Urine Negative ng/mL (<25)
[2019-02-06 06:57] LABS: Bacteria,Urine 1+ /lpf; WBC,Urine 20-50 #/hpf (0-3)
--- NOTE | 2019-02-06 08:32 | Progress Note ---
Labor Note - Subjective: Date: 02/06/19 Time: 07:20 regular contraction - Objective: NST:: Reactive Contractions:: every 2-3 minutes Cervical Dilation:: 3 Effacement:: 75% Station: -2 Membranes: spontaneously ruptured - Fetus: Monitoring?: Yes monitoring type:: Internal and External Comment:: I inserted a scalp clip - Assessment: Labor progressing?: Yes Cephalopelvic disproportion?: No Patient Problems: All Active Problems Acute bronchitis (Acute) Intractable vomiting with nausea (Acute) Asthma affecting in third trimester (Acute) (Acute) - Plan: Anesthesia for epidural?: Yes Continue to labor down?: Yes Plan for ?: No Continue to monitor?: Yes Start pushing?: No
--- NOTE | 2019-02-06 08:34 | History & Physical Report ---
OB - H&P: HPI Antepartum - History of Present Illness Chief complaint: Term , labor History of present illness: She is a 28-year-old 5 para 4 who has a history of labor. She has been having contractions since about 28 weeks. She did receive steroids. As result of that she was augmented at term. - History of Present Criteria for establishing EDC:: LMP confirmed by 1st trimester US care: good care Ultrasounds: normal 1st trimester US Obstetrical complications: labor Medical complications: none [facility] History I have reviewed the patient's past medical history: Yes Medical History: Reports:: Asthma, Heart Murmur Denies:: Diabetes Mellitus Type 1, Diabetes Mellitus Type 2 *Have you ever received a pneumonia vaccine?: No *Have you received a flu vaccine this season?: No Other Medical History: Reports: Anemia Other Surgeries: Yes: Cholecystectomy, Dilation and Curettage. No: Amputation: No Fractures: No - *Social History Smoking Status: Current every day smoker # Packs/Day (cigarettes): 0 Alcohol Intake: never Substance Use Type: denies use *Occupational Status:: unemployed *Travel in the last 8 weeks: None Family Hx:: Asthma, Hypertension PATIENT SAFETY ATTENDANT history: Spontaneous Review of Systems - Review of Systems Review of systems:: pertinent systems reviewed and negative unless documented below Meds Home Medications Medication Instructions Recorded Confirmed Type ferrous sulfate 325 mg (65 mg PO #30 tab 11/16/18 01/30/19 History iron) tablet BKB60-WL 400 mcg-om3 35 mg-dha 25 tab PO tab 11/22/18 01/30/19 History mg-epa 5 mg-fish oil chewable tablet nifedipine 10 mg capsule 10 mg PO QID #120 cap 11/22/18 01/30/19 Rx acetaminophen 300 mg-codeine 30 mg 1 tab PO Q8H PRN #20 tab 01/09/19 01/30/19 Rx tablet loratadine 10 mg tablet 10 mg PO DAILY #30 tab 01/23/19 01/30/19 Rx ondansetron 4 mg disintegrating 4 mg PO Q6H PRN #30 tab 01/23/19 01/30/19 Rx tablet acetaminophen 300 mg-codeine 30 mg 1 tab PO Q8H PRN #20 tab 01/24/19 01/30/19 Rx tablet hydrocodone 5 mg-acetaminophen 325 1 tab PO Q6H PRN #14 tab 01/25/19 01/30/19 Rx mg tablet Allergies Allergy/AdvReac Type Severity Reaction Status Date / Time No Known Allergies Allergy Verified 01/30/19 12:12 OB - H&P: Exam - Constitutional no acute distress - Routine HEENT Exam Head: Present: normocephalic Eye: Present: EOMI, PERRL ENT: Present: mucous membranes moist - Routine Neck Exam Present: supple, full ROM - Routine Respiratory Exam Absent: accessory muscle use (good air entry bilaterally), respiratory distress, wheezes, crackles - Routine Cardiovascular Exam Present: RRR. Absent: murmur - Routine Abdominal Exam Present: soft, normoactive bowel sounds. Absent: tenderness, distended, guarding - Routine Rectal Exam Patient deferred: visual exam, digital exam - Routine Exam Patient deferred: external exam, groin exam, perineal exam - Routine Extremities Exam Present: full ROM. Absent: cyanosis, edema - Routine Skin Exam Present: intact. Absent: cyanosis - Routine Neurological Exam Present: alert, oriented X3 - Routine Psychiatric Exam Present: normal affect OB - Results - Labs Labs: Short CBC 02/06/19 Range/Units 05:50 WBC 9.8 (4.8-10.8) K/mm3 Hgb 11.2 L (12.2-16.2) g/dL Hct 34.9 L (37.0-47.0) % Plt Count 411 (142-424) K/mm3 Urine 02/06/19 Range/Units 05:30 Urine Color Yellow (Yellow) Urine Appearance Clear (Clear) Urine pH 6.0 (5.0-8.5) Ur Specific [place] <= 1.005 (1.005-1.030) Urine Protein Negative (Negative) Urine Glucose (UA) Negative (Negative) OB - A/P Antepartum (1) Normal delivery at term Current visit: Yes Status: Acute - Additional Plan Planning to breastfeed?: No Plan: other Additional Information:: She has been started on IV oxytocin and has had her membranes ruptured.
--- NOTE | 2019-02-06 11:16 | Procedure Note ---
- Delivery Note Delivery Date:: 02/06/19 Delivery Time:: 11:01 Anesthesia Type: Epidural Was labor medically induced?: Yes Induction method: per pitocin protocol Gestational age (weeks): 39 delivered prior to 39 weeks?: No Gender: Female at 1 minute: 9 at 5 minutes: 9 Delivery Procedure:: She is a 28-year-old 5 para 4 who has had multiple episodes of labor. As result of that we elected to deliver her at 39 weeks gestational age. She was started on IV oxytocin and had her membranes ruptured. Under labor epidural she progressed to full dilation and delivered spontaneously a liveborn female child at 11:01 AM. On deliver the head the anterior shoulder then delivered followed by the rest the infant's body atraumatically. The oropharynx and nasopharynx were bulb suction. The baby was vigorous. We allowed the cord to continue to pulsate for 1 minute. The cord was then doubly clamped and cut. The was then placed on the mother's abdomen for further care and the nurses assigned Apgars of 9 at 1 minute and 9 at 5 minutes. We then obtained cord blood as well as cord pH. The pH is currently pending. She received IV oxytocin and using gentle traction on the cord and countertraction on the fundus I was able to easily deliver the placenta intact at 1105. He had a normal three-vessel cord. There were no perineal or vaginal lacerations. Estimated blood loss was approximately 400 cc. Placental Delivery Description: Spontaneous
[2019-02-07 06:52] LABS: Hematocrit 30.9 % (37.0-47.0); Hemoglobin 9.8 g/dL (12.2-16.2)
--- NOTE | 2019-02-07 07:09 | Progress Note ---
[facility] Anesthesia Checklist - Patient Identification Patient Identification: Arm Band, Verbal (Name & ) - Structural Data Admitted From: Inpatient Planned Operative Procedure/s: labor epidural Consent for Planned Operative Procedure(s) Verified: Yes Verified Documents: History and Physical - NPO Status Verified Time NPO: 00:00 - Additional verifications Patient : Yes Anesthesia Reactions: No Hx Blood Transfusions: No Blood Transfusion Reaction: No Cephalosporin Allergy: No Previous Colonoscopy: No - Cardiovascular Assessment Heart Sounds: S1 & S2 Pulse Strength: Baseline Pulse Rhythm: Regular Peripheral Edema: Yes - Airway Assessment C-Spine Mobility Assessed: No TMJ Mobility Assessed: No Dentition: Good Dentition - Neurological Assessment Level of Consciousness: Awake, Alert, Appropriate Hx Seizures: No Numbness or tingling in extremities: No - Anesthesia Plan Anesthesia Risk discussed: Yes Anesthesia Plan: Verified ASA Class: II Anesthesia Type: Epidural [facility] History I have reviewed the patient's past medical history: Yes Medical History: Reports:: Asthma, Heart Murmur Denies:: Diabetes Mellitus Type 1, Diabetes Mellitus Type 2 *Have you ever received a pneumonia vaccine?: No *Have you received a flu vaccine this season?: No Other Medical History: Reports: Anemia Anesthesia experience/problems:: none Other Surgeries: Yes: Cholecystectomy, Dilation and Curettage. No: Amputation: No Fractures: No - *Social History Smoking Status: Current every day smoker # Packs/Day (cigarettes): 0 Alcohol Intake: never Substance Use Type: denies use *Occupational Status:: unemployed *Travel in the last 8 weeks: None Family Hx:: Asthma, Hypertension [employer] SUPERVIS[employer] history: Spontaneous Para: 4
--- NOTE | 2019-02-07 07:35 | Progress Note ---
Internal Medicine - PN: Subj *Date: 02/07/19 *Time: 07:34 Interval history: She is doing well this morning. She is eating and drinking and ambulating. She will have a bilateral tubal ligation this morning. She does complain of some mild congestion. Exam Vital signs and Labs for Last 24 Hours: Temp Pulse Resp BP Pulse Ox 97.6 F 93 H 18 130/67 98 02/07/19 04:08 02/07/19 04:08 02/07/19 04:08 02/07/19 04:08 02/06/19 20:08 Laboratory Results - last 24 hr 02/06/19 05:50: Blood Type A Positive, Antibody Screen Negative 02/06/19 11:10: Cord ABG pH 7.36 02/07/19 06:27: Hgb 9.8 L, Hct 30.9 L I & O for Last 24 hours: Intake & Output 02/04/19 02/05/19 02/06/19 02/07/19 11:59 11:59 11:59 11:59 Weight 182 lb 0.006 oz Microbiology Reports for the Last 24 Hours: Microbiology 02/06/19 05:30 Urine,Clean Catch Urine Culture - Preliminary NO GROWTH AFTER 24 HOURS - Constitutional no acute distress - *Routine Respiratory Exam Present: rhonchi. Absent: accessory muscle use (good air entry bilaterally), wheezes, crackles - *Routine Cardiovascular Exam Present: RRR. Absent: murmur Assessment and Plan (1) Normal delivery at term Current visit: Yes Status: Acute Category: Medical Code(s): O80 - Encounter for full-term uncomplicated delivery - Assessment and plan all Dx Assessment and Plan for all problems:: She is doing well. We will plan for a tubal ligation this morning.
--- NOTE | 2019-02-07 08:08 | Operative Note ---
Date of procedure: 02/07/19 Pre-op Diagnosis:: Desire for sterilization Post-op Diagnosis:: Desire for sterilization Procedure performed:: bilateral tubal ligation Surgeon:: Tee Hernandez MD TERMINAL OPERATIONS MANAGER:: Stanley Bey Anesthesia: spinal Estimated blood loss (mL): 25 Clinical Note:: She is a 28-year-old 5 now para 5 who is 1 day post vaginal delivery. She expressed desire for sterilization. The risks and benefits as well as the irreversibility of tubal ligation were discussed with the patient prior to surgery. Operative findings:: She had a normal appearing uterus. The fallopian tubes were visualized. Operative note:: She was taken to the operating room where spinal anesthesia was found be adequate. She was prepped and draped in normal sterile fashion in the supine position. A small subumbilical incision was made with knife then carried through to the underlying layer of fascia with cautery. The fascia was grasped and then opened in the midline with Metzenbaum scissors. This incision was then extended superiorly and inferiorly. The rectus muscles were then in the midline and the peritoneum identified, tented up and entered sharply with Metzenbaum scissors. We then identified the patient's right tube and followed it to its fimbriated end. The tube was then clamped with Filshie clamps in 2 [address]. This was similar performed on the patient's left side. The peritoneum was then grasped and closed with running 2-0 Vicryl suture. The fascia was closed with running 0 Vicryl suture. The subcutaneous layer was then closed in the opposite direction using running 2-0 Vicryl suture. The skin was closed with running subcuticular 4-0 Monocryl suture. I then injected approximately 30 cc of 0.5% ropivacaine mixed with 1% Xylocaine. Sterile dressings were applied. She tolerated procedure well and was taken to the recovery room in excellent condition. All sponge, instrument and needle counts were correct. The estimated blood loss was less than 25 cc. Condition: stable Disposition: PACU Specimens:: None Complications:: None
--- NOTE | 2019-02-07 08:14 | Progress Note ---
[facility] Anesthesia Record Part I Intake, IV Amount: 500 Estimated blood loss (mL): 25 Urine output (mL): 0 Blood Pressure: 122/67 SaO2: 93 Pulse Rate: 77 Respiratory Rate: 12 Temperature: 97.7 F Patient is:: Awake, Stable Stable to PACU at:: 08:10
--- NOTE | 2019-02-07 08:14 | Progress Note ---
[facility] Anesthesia Record Part II Discharge Time: 08:40 Destination: Obstetric PACU nurse assessment reviewed?: Yes Patient Condition:: Good Anesthesia Complications:: None Swallowing reflex intact?: Yes Cyanosis?: No
--- OUTSIDE RECORDS SUMMARY | 2019-02-07 15:23 | External Medical Summary | Continuity of Care Document ---
:1990 Author Organization [facility] Address [address] [place] [address] Phone Care Team Providers Name Role Phone Edita Primary Care Provider David Attending Provider [place] Attending Provider Provider Primary Care Provider Unavailable Tal Attending Provider Allergies, Adverse Reactions, Alerts No known allergies. Medications Medication Status Dose Units Route Sig Qty Days Start Date End Ins tructions Date Ferrous Active 325 MG Oral Daily October 11:10am Ondansetron Active 4 MG Oral Q6H January 23, 2019 11:03am Loratadine Active 10 MG Oral Daily February 06, 2019 8:59am Problems Active Problems Medical Problem Onset Date Status Asthma affecting in Active third trimester Normal delivery at term Active Active Acute bronchitis Active Intractable vomiting with nausea Active Procedures Procedure Date Performed Status US OB biophysical profile February 01, 2019 active US OB follow up February 01, 2019 completed Group B Streptococcus Screen January 09, 2019 completed (ANSON) US OB BPP w/Fet-Mat & S/D December 28, 2018 completed XR chest 2V November 12, 2018 completed Group A Streptococcus Screen November 12, 2018 completed (ANSON) Relevant Diagnostic Tests and/or Laboratory Data Laboratory Results Test Date/Time Result Interpretation Reference Result Perfo rming Range Comment Site Urine Color October Yellow 2018 10:11am Urine Color October Yellow 2018 12:00pm Urine Color October Yellow 2018 1:42pm Urine Color October Yellow 2018 9:43am Urine Color November Yellow 2018 10:23am Urine Color November Corinna 2018 10:41am Urine Color November Yellow 2018 9:16am Urine Color November Yellow 2018 10:57am Urine Anabela Clear Appearance 2018 10:11am Urine Anabela Clear Appearance 2018 12:00pm Urine October Clear Appearance 2018 1:42pm Urine October Clear Appearance 2018 9:43am Urine November Clear Appearance 2018 10:23am Urine November Clear Appearance 2018 10:41am Urine November Clear Appearance 2018 9:16am Urine November Clear Appearance 2018 10:57am Urine Glucose October Negative (UA) 2018 10:11am Urine Glucose October Negative (UA) 2018 12:00pm Urine Glucose November Negative (UA) 2018 1:42pm Urine Glucose October Negative (UA) 2018 9:43am Urine Glucose November Negative (UA) 2018 10:23am Urine Glucose November Negative (UA) 2018 10:41am Urine Glucose November Negative (UA) 2018 9:16am Urine Glucose November Negative (UA) 2018 10:57am Urine Anabela negative Bilirubin 2018 10:11am Urine Anabela negative Bilirubin 2018 12:00pm Urine October negative Bilirubin 2018 1:42pm Urine October negative Bilirubin 2018 9:43am Urine November negative Bilirubin 2018 10:23am Urine November negative Bilirubin 2018 10:41am Urine November negative Bilirubin 2018 9:16am Urine November negative Bilirubin 2018 10:57am Urine Ketones Anabela Negative 2018 mg/dL 10:11am Urine Ketones Anabela Negative 2018 mg/dL 12:00pm Urine Ketones October Negative 2018 mg/dL 1:42pm Urine Ketones October Negative 2018 mg/dL 9:43am Urine Ketones November Negative 2018 mg/dL 10:23am Urine Ketones November Negative 2018 mg/dL 10:41am Urine Ketones November Trace 5 mg/dL 2018 9:16am Urine Ketones December Negative 2018 mg/dL 10:57am Urine Protein November 28+ 2018 10:11am Urine Protein October Negative 2018 12:00pm Urine Protein November Negative 2018 1:42pm Urine Protein November Negative 2018 9:43am Urine Protein December Negative 2018 10:23am Urine Protein December Negative 2018 10:41am Urine Protein November Trace 2018 9:16am Urine Protein December Negative 2018 10:57am Urine pH Anabela 6.0 2018 10:11am Urine pH Anabela 6.5 2018 12:00pm Urine pH October 7.0 2018 1:42pm Urine pH October 6.0 2018 9:43am Urine pH November 7.0 2018 10:23am Urine pH November 7.5 2018 10:41am Urine pH November 5.5 2018 9:16am Urine pH November 6.5 2018 10:57am Urine Blood October negative 2018 10:11am Urine Blood Anabela negative 2018 12:00pm Urine Blood October negative 2018 1:42pm Urine Blood October negative 2018 9:43am Urine Blood November negative 2018 10:23am Urine Blood November negative 2018 10:41am Urine Blood November nonhemolyzed 2018 trace 9:16am Urine Blood November negative 2018 10:57am Urine Specific October 1.030 Meadow 2018 10:11am Urine Specific October 1.010 Meadow 2018 12:00pm Urine Specific October 1.015 Meadow 2018 1:42pm Urine Specific November 1.010 Meadow 2018 9:43am Urine Specific November 1.010 Meadow 2018 10:23am Urine Specific November 1.015 Meadow 2018 10:41am Urine Specific November 1.020 Meadow 2018 9:16am Urine Specific November 1.010 Meadow 2018 10:57am Urine Anabela 0.2 Urobilinogen 2018 Dipstick 10:11am Urine October 0.2 Urobilinogen 2018 Dipstick 12:00pm Urine November 0.2 Urobilinogen 2018 Dipstick 1:42pm Urine October 0.2 Urobilinogen 2018 Dipstick 9:43am Urine November 0.2 Urobilinogen 2018 Dipstick 10:23am Urine November 0.2 Urobilinogen 2018 Dipstick 10:41am Urine November 0.2 Urobilinogen 2018 Dipstick 9:16am Urine November 0.2 Urobilinogen 2018 Dipstick 10:57am Urine Nitrate Anabela Negative 2018 10:11am Urine Nitrate Anabela Negative 2018 12:00pm Urine Nitrate October Negative 2018 1:42pm Urine Nitrate October Negative 2018 9:43am Urine Nitrate November Negative 2018 10:23am Urine Nitrate December Negative 2018 10:41am Urine Nitrate November Negative 2018 9:16am Urine Nitrate November Negative 2018 10:57am Urine Anabela Negative Leukocyte 2018 Esterase 10:11am Urine Anabela Trace Leukocyte 2018 Esterase 12:00pm Urine October Negative Leukocyte 2018 Esterase 1:42pm Urine October Large Leukocyte 2018 Esterase 9:43am Urine November Small Leukocyte 2018 Esterase 10:23am Urine November Small Leukocyte 2018 Esterase 10:41am Urine November Negative Leukocyte 2018 Esterase 9:16am Urine November Small Leukocyte 2018 Esterase 10:57am White Blood October 4.3 K/mm3 4.8-10.8 Delta: 6.9 [facility], [address] [place] [address] 36 E Count 2018 on Vicki JIMENEZ 50543 6:00am 11/12/18-124 2 Red Blood October 3.23 M/mm3 4.20-5.[address] 36 E Count 2018 Vicki JIMENEZ 16949 6:00am Hemoglobin October 10.2 g/dL 12.2-16.[address] 36 E 2018 [place] [address] 6:00am Hematocrit October 30.9 % 37.0-47.[address] 36 E 2018 Vicki JIMENEZ 58413 6:00am Mean October 95.7 fl 81-99 [facility], [address] [place] [address] 36 E Corpuscular 15th, 2019 Neda JIMENEZ 49416 Volume 6:00am Mean October 31.5 pg 27.0-31.2 [facility], [address] [place] [address] E Corpuscular 2018 Neda JIMENEZ 99190 Hemoglobin 6:00am Mean October 32.9 g/dL 31.8-35.4 [facility], [address] [place] [address] E Corpuscular 2018 Neda JIMENEZ 50720 Hemoglobin 6:00am Concent Red Cell October 12.7 % 11.5-17.5 [facility], [address] [place] [address] E Distribution 2018 Shayna JIMENEZ 75151 Width 6:00am Platelet Count October 313 K/mm3 142-424 [facility], [address] [place] [address] E 2018 Vicki Pratt 6:00am Mean Platelet October 7.1 fl 7.4-10.4 [facility], [address] [place] [address] E Volume 2018 Vicki Pratt 6:00am Neutrophils October 64.8 % 37.0-80.0 [facility], [address] [place] [address] E (%) (Auto) 2018 Gillian Pratt 6:00am Lymphocytes Anabela 27.4 % 10-50 [place] [address] E (%) (Auto) 2018 Gillian Pratt 6:00am Monocytes (%) October 7.5 % 1.7-9.3 [facility], [address] [place] [address] E (Auto) 2018 Vicki Pratt 6:00am Eosinophils Anabela 0.1 % 0.1-12.0 [place] [address] E (%) (Auto) 2018 Gillian Pratt 6:00am Basophils (%) October 0.2 % 0.1-2.0 [facility], [address] [place] [address] E (Auto) 2018 Vicki Pratt 6:00am Neutrophils # October 2.8 K/mm3 1.8-7.8 [place] [address] E (Auto) 2018 Vicki TONY 04545 6:00am Lymphocytes # October 1.2 K/mm3 0.7-4.5 [facility], [address] [place] [address] 36 E (Auto) 2018 [place] TONY 34942 6:00am Monocytes # October 0.3 K/mm3 0.1-1.0 [facility], [address] [place] [address] 36 E (Auto) 2018 [place] TONY 50696 6:00am Eosinophils # Anabela 0.0 K/mm3 0.0-0.4 [facility], [address] [place] [address] 36 E (Auto) 2018 [place] TONY 94706 6:00am Basophils # Anabela 0.0 K/mm3 0-0.2 [facility], [address] [place] [address] E (Auto) 2018 [place] TONY 46476 6:00am Differential October 100 [facility], [address] [place] [address] 36 E Total Cells 2018 Neda JIMENEZ 68518 Counted 12:42pm Neutrophils % October 84 % 42-76 [facility], [address] [place] [address] E (Manual) 2018 Vicki JIMENEZ 88624 12:42pm Lymphocytes % October 11 % 10-50 [facility], [address] [place] [address] E (Manual) 2018 Vicki JIMENEZ 07269 12:42pm Monocytes % October 5 % 2-9 [facility], [address] [place] [address] E (Manual) 2018 Vicki JIMENEZ 60203 12:42pm Platelet October Normal [facility], [address] [place] [address] 36 E Estimate 2018 Vicki JIMENEZ 70822 12:42pm Red Blood Cell October Normal [facility], [address] [place] [address] 36 E Morphology 2018 Gillian JIMENEZ 79999 12:42pm Urine Color October Yellow Yellow [facility], [address] [place] [address] 36 E 2018 Vicki JIMENEZ 44747 12:20pm Urine Color December Yellow Yellow [facility], [address] [place] [address] 36 E 2018 Vicki JIMENEZ 22206 2:20pm Urine Anabela Clear Clear [facility], [address] [place] [address] 36 E Appearance 2018 Gillian JIMENEZ 24644 12:20pm Urine November Clear Clear [facility], [address] [place] [address] 36 E Appearance 2018 Gillian JIMENEZ 53991 2:20pm Urine pH Anabela 8.0 5.0-8.5 [facility], [address] [place] [address] 36 E 2018 Vicki JIMENEZ 38345 12:20pm Urine pH November 7.0 5.0-8.5 [facility], [address] [place] [address] 36 E 2018 Vicki JIMENEZ 39433 2:20pm Urine Specific Anabela 1.010 1.005-1.03 [facility], [address] [place] [address] 36 E Meadow 2018 0 Vicki JIMENEZ 78024 12:20pm Urine Specific November 1.015 1.005-1.03 [facility], [address] [place] [address] 36 E Meadow 2018 0 Vicki JIMENEZ 92828 2:20pm Urine Protein Anabela Negative Negative [facility], [address] [place] [address] 36 E 2018 Vicki JIMENEZ 75435 12:20pm Urine Protein November Negative Negative [facility], [address] [place] [address] 36 E 2018 Vicki JIMENEZ 33876 2:20pm Urine Glucose Anabela Negative Negative [facility], [address] [place] [address] E (UA) 2018 Vicki JIMENEZ 18580 12:20pm Urine Glucose November Negative Negative [facility], [address] [place] [address] 36 E (UA) 2018 Vicki JIMENEZ 41023 2:20pm Urine Ketones Anabela Trace Negative [facility], [address] [place] [address] 36 E 2018 Vicki JIMENEZ 30440 12:20pm Urine Ketones November Negative Negative [facility], [address] [place] [address] 36 E 2018 Vicki JIMENEZ 93158 2:20pm Urine Blood Anabela Negative Negative [facility], [address] [place] [address] 36 E 2018 Vicki JIMENEZ 73972 12:20pm Urine Blood November Negative Negative [facility], [address] [place] [address] 36 E 2018 Vicki JIMENEZ 51372 2:20pm Urine Nitrate Anabela Negative Negative [facility], [address] [place] [address] 36 E 2018 Vicki JIMENEZ 45093 12:20pm Urine Nitrate November Negative Negative [facility], [address] [place] [address] 36 E 2018 Vicki JIMENEZ 15980 2:20pm Urine Anabela Negative Negative [facility], [address] [place] [address] 36 E Bilirubin 2018 Vicki JIMENEZ 62847 12:20pm Urine November Negative Negative [facility], [address] [place] [address] E Bilirubin 2018 Vicki TONY 66144 2:20pm Urine Anabela 2.0 EU/dl [facility], [address] [place] [address] 36 E Urobilinogen 2018 Shayna JIMENEZ 57322 12:20pm Urine November 0.2 EU/dl [facility], [address] [place] [address] 36 E Urobilinogen 2018 Shayna JIMENEZ 14116 2:20pm Urine Anabela Negative Negative [facility], [address] [place] [address] E Leukocyte 2018 Vicki JIMENEZ 05376 Esterase 12:20pm Urine November Trace Negative [facility], [address] [place] [address] E Leukocyte 2018 Vicki JIMENEZ 27967 Esterase 2:20pm Urine RBC Anabela None #/hpf [facility], [address] [place] [address] 36 E 2018 Vicki JIMENEZ 29438 12:20pm Urine WBC Anabela Occasional [facility], [address] [place] [address] 36 E 2018 #/hpf Vicki JIMENEZ 77593 12:20pm Urine WBC November 3-5 #/hpf [facility], [address] [place] [address] 36 E 2018 Vicki JIMENEZ 34964 2:20pm Urine Squamous October 5-10 #/hpf [facility], [address] [place] [address] 36 E Epithelial 2018 Gillian JIMENEZ 47818 Cells 12:20pm Urine Squamous November 5-10 #/hpf [facility], [address] [place] [address] 36 E Epithelial 2018 Gillian JIMENEZ 83467 Cells 2:20pm Urine Bacteria Anabela Trace /lpf NONE [facility], [address] [place] [address] 36 E 2018 Vicki JIMENEZ 96622 12:20pm Urine Bacteria November Trace /lpf NONE [facility], [address] [place] [address] 36 E 2018 Vicki JIMENEZ 90720 2:20pm Sodium Level October 139 mmol/L 136-145 [facility], [address] [place] [address] 36 E 2018 Vicki JIMENEZ 65261 6:00am Potassium October 4.2 mmoL/L 3.5-5.1 K MAY BE [facility], [address] [place] [address] E Level 2018 FALSEY Vicki JIMENEZ 54087 6:00am ELEVATED DUE TO SLIGHT HEMOLYSIS Chloride Level October 107 mmol/L 98-107 [facility], [address] [place] [address] E 2018 Vicki JIMENEZ 00563 6:00am Carbon Dioxide October 23 mmol/L 21.0-32.0 [facility], [address] [place] [address] E Level 2018 Vicki JIMENEZ 23347 6:00am Anion Gap October 13.2 mEq/L 5-15 [facility], [address] [place] [address] E 2018 Vicki JIMENEZ 92611 6:00am Blood Urea October 2 mg/dL -18 Delta: 4 on [facility], [address] [place] [address] E Nitrogen 201811/12/18- Shayna JIMENEZ 02423 6:00am 2 Creatinine October 0.43 mg/dL 0.55-1.02 Delta: 0.54 [facility], [address] [place] [address] E 2018 on Vicki JIMENEZ 25251 6:00am 11/12/18- 2 Estimated October 233 mL/min 0-300 [facility], [address] [place] [address] E Creatinine 2018 Gillian JIMENEZ 98642 Clearance 6:00am Estimated GFR October 209 ML/MIN >59 Delta: 160 [facility], [address] [place] [address] 36 E ( 2018 on Vicki JIMENEZ 96346 Tajik) 6:00am 11/12/18 2 Estimat October 172 ml/min >59 [facility], [address] [place] [address] E Glomerular 2018 Gillian JIMENEZ 14876 Filtration 6:00am Rate Glucose Level October 99 mg/dL 74-106 [facility], [address] [place] [address] E 2018 Vicki JIMENEZ 74544 6:00am Fasting October 88 mg/dL 60-105 [facility], [address] [place] [address] 36 E Glucose 2018 Vicki JIMENEZ 43268 10:13am Fasting November 77 mg/dL 60-105 [facility], [address] [place] [address] 36 E Glucose 2018 Vicki TONY 87880 12:02pm Glucose 1 Hour October 143 mg/dL 74-106 [facility], [address] [place] [address] 36 E 2018 [place] TONY 14228 10:13am Glucose 1 Hour November 163 mg/dL 74-106 [facility], [address] [place] [address] 36 E 2018 [place] TONY 94261 12:02pm Glucose 2 Hour November 162 mg/dL 74-106 [facility], [address] [place] [address] E 2018 [place] TONY 63669 12:02pm Glucose 3 Hour November 142 mg/dL 74-106 [facility], [address] [place] [address] E 2018 Vicki TONY 11621 12:02pm Urine Fasting Anabela Negative [facility], [address] [place] [address] E Glucose 2018 mg/dL Vicki JIMENEZ 68733 10:13am Urine Fasting October Negative [facility], [address] [place] [address] E Glucose 2018 mg/dL Vicki TONY 22913 12:02pm Urine Glucose Anabela Negative [facility], [address] [place] [address] E 1 Hour 2018 mg/dL Vicki JIMENEZ 55307 10:13am Urine Glucose October Negative [facility], [address] [place] [address] E 1 Hour 2018 mg/dL Vicki TONY 66744 12:02pm Urine Glucose November Trace mg/dL [facility], [address] [place] [address] E 2 Hour 2018 Vicki JIMENEZ 38578 12:02pm Urine Glucose November 1+ mg/dL [facility], [address] [place] [address] E 3 Hour 2018 Vicki JIMENEZ 81121 12:02pm Calcium Level October 8.4 mg/dL 8.5-10.1 [facility], [address] [place] [address] E 2018 Vicki JIMENEZ 58154 6:00am Total October 0.2 mg/dL 0.2-1.0 [facility], [address] [place] [address] E Bilirubin 2018 Vicki JIMENEZ 09574 12:42pm Aspartate October 17 U/L 15-37 [facility], [address] [place] [address] 36 E Amino Transf 2018 Shayna JIMENEZ 98494 (AST/SGOT) 12:42pm Alanine October 27 U/L 12-78 [facility], [address] [place] [address] E Aminotransfera 2018 Emir JIMENEZ 37914 se (ALT/SGPT) 12:42pm Total Protein October 6.5 gm/dL 6.4-8.2 [facility], [address] [place] [address] 36 E 2018 [place] [address] 12:42pm Albumin October 2.7 gm/dL 3.4-5.0 [facility], [address] [place] [address] E 2018 [place] [address] 12:42pm Globulin Anabela 3.8 gm/dl 1.3-3.2 [facility], [address] [place] [address] E 2018 [place] [address] 12:42pm Albumin/Globul Anabela 0.7 1.1-1.8 [facility], [address] [place] [address] E in Ratio 2018 Vicki JIMENEZ 20168 12:42pm Alkaline October 117 U/L 46-116 [facility], [address] [place] [address] E Phosphatase 2018 Neda sincere TONY 21257 12:42pm Influenza Type Anabela Negative Negative [facility], [address] [place] [address] E A Antigen 2018 [place] [address] 12:26pm Influenza Type Anabela Negative Negative [facility], [address] [place] [address] E B Antigen 2018 Vicki JIMENEZ 70455 12:26pm Group A Anabela Negative Negative [facility], [address] [place] [address] E Streptococcus 2018 Cynjonny cuevana TONY 95949 Rapid 12:26pm Urine Opiates December Positive This is an [facility], [address] [place] [address] E Screen 2018 ng/mL UNCONFIRMED Neda na TONY 82016 2:20pm result. This result is for medical purposes and/or treatment only. Urine November Negative [facility], [address] [place] [address] E Barbituates 2018 ng/[place] [address] Screen 2:20pm Urine November Negative [facility], [facility] 36 E Phencyclidine 2018 ng/[place] [address] Screen 2:20pm Urine December Negative [facility], [facility] 36 E Amphetamines 2018 ng/[place] [address] Screen 2:20pm Urine November Negative [facility], [address] [place], [place] [address]way 36 E Methadone 2018 ng/[place] [address] Screen 2:20pm Urine November Negative [facility], [address] [place] [address] 36 E Benzodiazepine 2018 ng/[place] [address] s Screen 2:20pm Urine Cocaine December Negative [facility], [address] [place] [address] 36 E Screen 2018 ng/[place] [address] 2:20pm Urine December Negative [facility], [address] [place], [place] [address]way 36 E Marijuana 2018 ng/[place] [address] (THC) Screen 2:20pm Microbiology Results Procedure Source Result Collection Result Result Performin g Date/Time Date/Time Comment Site Group A Throat Negative October [facility], [address] [place] [address] 36 E Streptococcus for Group A 2018 [place] [address] Screen (ANSON) Streptococc 12:26pm 11:49am us. Group B Vaginal Negative December [facility], [address] [place] [address] 36 E Streptococcus for Group B 2018 [place] [address] Screen (ANSON) Streptococc 10:39am 8:47am us. Diagnostic Imaging Reports Report Dictated Date/Time Dictated By Status Radiology Report November 12, 2018 Canelo Travis completed 2:22pm [facility] [address] [facility] [address] [place] [address] XRay R eport Sig vandana Patient: Jackelin Parikh MR#: [id number] : 1990 Acct:[id number] Age/Sex: 28 / F ADM Date: 9 Loc: OB 279-[address]: Tee Hernandez MD Ordering Physician: Stanton Hernandes MD Date of Service: 09/14/19 Procedure(s): XR chest 2V Accession Number(s): [id number] cc: Canelo Travis ; Sadia Kohler PRN~ PROCEDURE: XR CHEST 2V Patient Age:28Y CLINICAL HISTORY: pain history of smok ing asthma Coughing weakness nausea vomiting 1 wee k. Patient is was shielded. ER physician ordered and pat ient authorized x-ray COMPARISON: No exams were available fo r comparison FINDINGS: The heart is upper normal in size with left. Nathalie and mediastinal structures satisfactory. Chest wall in T-spine unremarkable Slight prominence of pulmonary vascular ity of most likely merely reflects the state of . No pl eural effusions nor Alexandra B lines nor overt CHF. But there is also mild accentuation markings towards the right base but nonspecific but most likely reflects additional density anteriorly at the ri ght base, as seen on lateral view. Difficult to totally exclude min imal pneumonia right base particularly if symptoms to suggest suc h. The left lung appears clear and clear a t left lung base IMPRESSION: Mild pulmonary vascular prominence-most likely reflecting state Heart upper normal size Slight coarsened markings, right lung b ase. May merely reflect atelectasis along with overlying densit y, but difficult to exclude a subtle early infiltrate right lung base .. Clinical correlation required. Dictated by: Kael Travis MD 019 16:36 Electronically signed by Howard Travis MD in [place] 11/13/2018 16:36 Radiology Report December 28, 2018 Godfrey Vanegas MD completed 2:29pm [facility] [address] [place] [facility] [address] [place] [address] Ultrasoun d Report Sig vandana Patient: Jackelin Parikh MR#: [id number] : 1990 Acct:[id number] Age/Sex: 28 / F ADM Date: 9 Loc: RAD Attending Dr: Tee Hernandez MD Ordering Physician: Tee Hernandez MD Date of Service: 12/28/18 Procedure(s): US OB BPP w/Fet-Mat & S/D Accession Number(s): [id number] cc: Godfrey Vanegas MD; Provider,Referral MD~ PROCEDURE: US OB BPP W/FET-MAT S/D CLINICAL INDICATION: US OB BPP/Growth for LGA and check Vag spotting COMPARISON: OBFEMAT US OB /matern al detail from 09/27/2018 FINDINGS: There is a single live fetus present wh ich is in cephalic presentation. Placenta is anterior and grade 2. Average ultrasound age is 34 weeks 2 days. Estimated feta l weight 2343 g which is 60 second percentile. All parameters jonathan elate BPD 34 weeks 6 days, OFD 34 weeks 6 day s, HC 34 weeks 3 days, AC 34 weeks 2 days, FL 33 weeks 3 days. Hear t rate is 138 beats per minute. Umbilical artery SD ratio is 2 .8 with a resistive index of 0.65. LENARD is 13 cm. Cervical length i s low at 2 cm and 1.7 cm with Valsalva. HC/AC is 1.02 CI is 0.8 FL/BPD is 0.75 FL/AC is 0.21 IMPRESSION: Live IUP at 34 weeks 2 days. All manuel eters correlate. Unremarkable Doppler evaluation of the umbilical art tonya. Cervical length is low at 2 cm. Please see above for detail Dictated by: Godfrey Vanegas MD 12/28/2018 15:04 Electronically signed by Godfrey Vanegas in [place] 12/28/2018 15:04 Radiology Report February 01, 2019 Godfrey Vanegas MD completed 11:04am [place] [id number] [facility] [address] [id number] Ultrasoun d Report Sig vandana Patient: Jackelin Parikh MR#: [id number] : 1990 Acct:[id number] Age/Sex: 28 / F ADM Date: 9 Loc: RAD Attending Dr: Tee Hernandez MD Ordering Physician: Tee Hernandez MD Date of Service: 02/01/19 Procedure(s): US OB follow up Accession Number(s): [id number] cc: Godfrey Vanegas MD; Provider,Referral MD~ PROCEDURE: US OB FOLLOW UP CLINICAL INDICATION: US OB BPP Growt h- SGA COMPARISON: US OB BPP W/FET-MAT S/D from 12/28/2018 FINDINGS: There is a single live fetus which is i n cephalic presentation. heart and body motion noted withi n FHR 141 beats per minute. Average ultrasound age is 37 weeks 2 da ys. Following parameters are obtained. BPD 38 weeks 3 days, HC 39 w eeks 3 days, AC 34 weeks 3 days, FL 36 weeks 6 days. Biophysical profile is 8 of 8. Amniotic fluid index is normal at 10 cm. Estima dom weight is 2801 g which is 11th percentile. The placenta is anterior and grade 2. Biophysical profile is 8 of 8. IMPRESSION: There is a single live fetus which is i n cephalic presentation. Average ultrasound age is 37 weeks 2 da ys. Parameters correlate except for the abdominal circumference which is low at 34 weeks 3 days. Biophysical profile is 8 of 8. Amniotic fluid index is normal at 10 cm . Estimated weight is 2801 g which is 11th percentile which is borderline for small for gestational ag e/IUGR. The placenta is anterior and grade 2. Biophysical profile is 8 of 8. Dictated by: Godfrey Vanegas MD 02/02/2019 16:00 Electronically signed by Godfrey Vanegas in OV 02/02/2019 16:00 Health Concerns Concerns bronchitis, nausea/vomiting Advance Directives Advance Directive Response Recorded Date/Time Does the patient have an No January 23, 2019 11:05am advanced directive on file? Living Will No January 23, 2019 11:05am Does the patient have an No January 09, 2019 11:09am advanced directive on file? Living Will No January 09, 2019 11:09am Does the patient have an No January 17, 2019 10:06am advanced directive on file? Living Will No January 17, 2019 10:06am Does the patient have an No December 27, 019 9:57am advanced directive on file? Living Will No December 27, 2018 9 :57am Does the patient have an No November 28, 2018 11:43am advanced directive on file? Living Will No November 28, 2018 11:43am Chief Complaint and Reason for Visit Chief Complaint Intractable vomiting, acute bronchitis LAB WORK NST injection LAB WORK injection 2nd injection vaginal bleeding nst, 35wks, contractions OFFICE DROP OFF nst, 38wks contractions SGA NST Being Induced this AM Reason for Visit Acute bronchitis Asthma affecting i n third trimester Intractable vomiting with na usea Normal delivery at term Encounters Encounter Location(s) Arrival/Admit Date Discharge/Depart Provi chel(s) Date Discharged [facility] Physician November 12, November 13, 2018 Chel jason Hernandez Inpatient Group-Obstetric 2019 4:31pm 11:18am Registered [facility] Physician November 16, Tee roche Clinical Group-Laboratory 2018 9:54am Departed [facility] Physician November 16, November 16, 2018 Chel jason Hernandez Physician/Provi Group-Women's 2018 10:43am 11:29am [facility] Visit Registered [facility] Physician November 18, November 18, 2018 Chel jason Hernandez Inpatient Group-Women's 2018 9:37am 10:47am MD Stefany Hernandez Departed [facility] Physician November 22, November 22, 2018 Chel jason Hernandez Physician/Provi Group-Women's 2018 9:22am 10:21am [facility] Visit Departed [facility] Physician November 25, November 25, 2018 Chel jason Hernandez Physician/Provi Group-Women's 2018 11:33am 12:16pm [facility] Visit Departed [facility] Physician November 25, November 25, 2018 Emmastanton Kohler Clinical Group-Infusion 2018 12:48pm 1:41pm , EP TECHNOLOGIST Therapy ChemoTherapy Departed [facility] Physician November 28, November 28, 2018 Chel jason Hernandez Physician/Provi Group-Women's 2018 9:59am 11:45am [facility] Visit Registered [facility] Physician November 29, 2018 Tee rose Clinical Group-Laboratory 12:01pm Departed [facility] Physician December 07, 2018 December 07, 2018 Moises Hernandez Physician/[facility] Group-Women's 2:30pm 3:37pm [facility] Visit Departed [facility] Physician December 07, 2018 December 07, 2018 Moises Hernandez Clinical Group-OB 3:43pm 4:07pm Outpatient Service Departed [facility] Physician December 08, 2018 December 08, 2018 [facility]-OB 3:53pm 4:04pm Outpatient Service Departed [facility] Physician December 19, 2018 December 19, 2018 [facility] Physician/[facility] 1:04pm 2:55pm [facility] Visit Departed [facility] Physician December 27, 2018 December 27, 2018 [facility] Physician/[facility]-Women's 9:09am 10:07am [facility] Hernandez Visit Registered [facility] Physician December 28, 2018 Tee cardoza Clinical Group-Radiology 1:08pm Departed [facility] Physician January 02, 2019 January 02, 2019 [facility] Physician/[facility]-Women's 9:56am 10:37am [facility] Hernandez Visit Registered [facility] Physician January 03, 2019 January 03, 2019 [facility] Inpatient Group-Women's 12:02pm 4:04pm MD Stefany Hernandez Departed [facility] Physician January 09, January 09, 2019 Tee Hernandez Physician/Provi Group-Women's 2018 10:25am 11:07am [facility] Visit Registered [facility] Physician January 09, Tee Hernandez Clinical Group-Lab Drop 2018 4:57pm MD Off to [facility] Departed [facility] Physician January 17, January 17, 2019 Tee Hernandez Physician/Provi Group-Women's 2018 9:12am 9:58am [facility] Visit Departed [facility] Physician January 23, January 23, 2019 Tee Hernandez Physician/Provi Group-Women's 2018 10:22am 11:19am [facility] Visit Departed [facility] Physician January 24, January 24, 2019 Tee Hernandez Clinical Group-OB 2019 2:12pm 3:30pm Outpatient Service Departed [facility] Physician January 30, 2019 January 30, 2019 [facility] Physician/Provi Group-Women's 11:24am 12:25pm [facility] Visit Registered [facility] Physician February 01, 2019 Tee cardoza Clinical Group-Radiology 10:21am Registered [facility] Physician February 04, 2019 February 04, 2019 Olman Parada Inpatient Group-Just for 2:03pm 3:15pm MD Vences Registered [facility] Physician February 06, 2019 Tee cardoza Inpatient Group-Women's 5:16am MD Stefany Hernandez Registered [facility] Physician February 07, Tee Hernandez Inpatient Group- 2019 2:55pm Recent Diagnosis Onset Date Acute bronchitis Asthma affecting in third trimester Intractable vomiting with nausea Normal delivery at term Assessments See care plan goalsSee care plan goalsSee care plan goals Functional Status Observation Response Date Recorded Ambulation Ability Independent January 24, 2019 3:10pm Ambulation Ability Independent November 25, 2018 1:40pm Ambulation Ability Independent November 13, 2018 11:18am Functional status ambulatory January 23, 2019 11:05am Functional status ambulatory January 09, 2019 11:09am Functional status ambulatory December 07, 2018 3: 49pm Functional status ambulatory January 30, 2019 2 :05pm Functional status ambulatory January 17, 2019 10:06am Functional status ambulatory January 02, 2019 1 0:35am Functional status ambulatory December 27, 2018 9 :57am Functional status ambulatory December 19, 2018 5 :43pm Functional status ambulatory November 28, 2018 11:43am Functional status ambulatory November 25, 2018 12:05pm Functional status ambulatory November 22, 2018 10:06am Functional status ambulatory November 16, 2018 5:15pm Goals Acute Goals Nursing Diagnosis: Knowledge Deficit D isease/Condition Goal(s): Education of di sease process Instruction(s): Follow provider p daria/instructions (See attached discharge education) Follow/up with primary care provider as instructed in discharge packet Nursing Diagnosis: Knowledge Deficit D isease/Condition Goal(s): Education of di sease process Instruction(s): Follow provider p daria/instructions (See attached discharge education) Follow/up with primary care provider as instructed in discharge packet Nursing Diagnosis: Knowledge Deficit D isease/Condition Goal(s): Education of di sease process Instruction(s): Follow provider p daria/instructions (See attached discharge education) Follow/up with primary care provider as instructed in discharge packet Nursing Diagnosis: Knowledge Deficit D isease/Condition Goal(s): Education of di sease process Instruction(s): Follow provider p daria/instructions (See attached discharge education) Follow/up with primary care provider as instructed in discharge packet Nursing Diagnosis: Knowledge Deficit D isease/Condition Goal(s): Education of di sease process Instruction(s): Follow provider p daria/instructions (See attached discharge education) Follow/up with primary care provider as instructed in discharge packet Nursing Diagnosis: Knowledge Deficit D isease/Condition Goal(s): Education of di sease process Instruction(s): Follow provider p daria/instructions (See attached discharge education) Follow/up with primary care provider as instructed in discharge packet Nursing Diagnosis: Knowledge Deficit D isease/Condition Goal(s): Education of di sease process Instruction(s): Follow provider p daria/instructions (See attached discharge education) Follow/up with primary care provider as instructed in discharge packet Ambulatory Goals Patient verbalizes understanding of dise ase process/healthy behaviors. Patient to follow plan of care. Education provid ed. Immunizations Immunization Event Date Not Given Dose Shoe Worker Lot Vac cine Reason Number Number Informatio n Statement (VIS) Deta il Fluzone, October intradermal 2012 Mental Status Observation Response Date Recorded Able to Read No December 08, 2018 3 :59pm Able to Write No December 08, 2018 3 :59pm Able to Read Yes January 24, 2019 2:31pm Able to Write Yes January 24, 2019 2:31pm Able to Read Yes December 07, 2018 3: 57pm Able to Write Yes December 07, 2018 3: 57pm Able to Read Yes November 12, 2018 5:00pm Able to Write Yes November 12, 2018 5:00pm Medical Equipment No Medical Equipment Information available Insurance Providers Guarantor Jackelin Parikh Address [address] [address] Contact Info. Home Phone: Payer Policy Id Coverage Id Subscriber's Subscriber Effective Expi ration Name Id Date Date [employer] [id number] Jackelin Parikh [id number] [facility] Self Pay Self N/A Plan of Treatment Follow up as ordered by primary care provider Follow up as ordered by primary care provider Follow up as ordered by primary care provider She continues to do well. She still has some lower abdominal pain and I suspect that it is just a result of pressure on her pubic bone. Her cervix has slightly changed and has thinned out slightly but otherwise is still only 2 cm. Baby's head is still ballotable. We will see her back again next week. We discussed the risks of her tubal ligation surgery that includes bleeding, infection, injuries to the bowel and bladder. We discussed the irreversibility of tubal ligation. All questions were answered and consents were signed. We did group B strep today. I told her I would call her in a couple of Tylenol 3's. See her back again next week. Her cervix has not changed. She continues to have lower abdominal pain. She is doing well. She has just occasional rare contractions. Her cervix has not changed. She said she had some vaginal bleeding but today there is no bleeding when I examined her cervix. Since she has been having some occasional contractions and it is her fifth baby will go ahead and give her course of steroids today. I will see her back in 2 weeks time unless she has any issues. She is doing well. She continues to have occasional contractions as well as lower pelvic pain. Her cervix has not changed. We will plan to deliver her next week when she is 39 weeks. In the meantime we will get an ultrasound to check the baby's size and fluid. She measures up smaller than her dates She continues to do well. We will see her back again in a week. She continues to have low back pain but there is been no change in her cervix. She would like a tubal so we will arrange that for the day after her delivery. I told her we would deliver her by 39 weeks. We will see her back next week. We will get another ultrasound should she does have some pinkish discharge. She also measures up slightly larger than her dates so we will get a growth on the baby as well. She continues to have contractions. Her nonstress test today was reactive. Her cervix is not really changed. She had one small contraction on the monitor. She continues with her nifedipine and bedrest. She has had steroids earlier in the . She continues to have occasional contractions. There were no contractions on the nonstress test today. We will see her back again next week. She will continue with her nifedipine. She continues to have wheeziness and cough. She had a shot of Rocephin yesterday and will take another one today. She is taking nebulizers 4 times daily. We have called her in Flovent to take twice daily to see if this helps as well. We will see her back in 3 days time to see how she is doing. She continues to have occasional contractions. This morning she had some bright red bleeding. On examination the cervix is 2 cm 25%. There was some pinkish-brown discharge in the vagina. Ultrasound shows that the fetus is in the cephalic presentation and There has been good growth. There is adequate fluid. The placenta is well away from the cervix. We will go ahead and start nifedipine 10 mg up to 4 times a day. I will see her back in 3 days time. She will return if she has any further episodes of regular contractions. I suspect that the bleeding was from her cervix and slight changes in the cervix that has occurred as result of the ultrasound. She is much improved from last time we saw her when she was admitted for pneumonia last week. She seems to be doing much better. We will see her back again in 2 weeks time. Future Tests Future scheduled test information is unavailable Pending Tests Pending diagnostic test information is unavailable Future Visits Future appointment information is unavailable Referrals to Other Providers Reason for Referral Start Provider Provider Contact Provider Address Referral Date Information Admission to [facility] February 072018 [facility] Future Procedures Future procedure information is unavailable Future Medications Future medication information is unavailable Patient Instructions Hyperemesis Gravidarum DI for Acute Bronchitis Antepartum Care Diet How to Do Kick Counts Antepartum Care Labor Diet Acute Bronchitis Diet Diet Diet Antepartum Care Antepartum Care Diet Diet Diet Antepartum Care False Labor How to Breastfeed Your Baby Diet How to Breastfeed Your Baby Diet Diet Antepartum Care Diet Antepartum Care How to Care for a Surgical Wound Depression Hemorrhage [facility] Post Discharge Instructions Social History Observation Status Date of Observation Patient currently November 12, 2018 Assigned Sex Female Vital Signs Vital Reading Result Reference Range Collection Date/ Time Height 162.56 cm November 12, 2018 5:54pm Weight 77.11 kg November 12, 2018 5:54pm Body Temperature 98.1 [degF] 97.6-99.6 November 13, 2018 9:00am Heart Rate 76 /min 60-90 November 13, 2018 9:00am Respiratory rate 16 /min 12-24 November 13, 2018 9:00am Oxygen saturation by 98 % 95-100 October 302018 Pulse oximetry 9:00am BP Systolic 107 mm[Hg] 110-140 November 13, 2018 9:00am BP Diastolic 55 mm[Hg] 60-90 November 13, 2018 9:00am BMI (Body Mass Index) 29.2 kg/m2 November 12, 2018 5:54pm Height 162.56 cm November 16, 2018 11:18am Weight 79.03 kg November 16, 2018 11:18am BP Systolic 110 mm[Hg] 110-140 November 16, 2018 11:18am BP Diastolic 52 mm[Hg] 60-90 November 16, 2018 11:18am BMI (Body Mass Index) 29.9 kg/m2 November 16, 2018 11:18am Height 162.56 cm November 18, 2018 10:02am Weight 79.37 kg November 18, 2018 10:02am Body Temperature 98.7 [degF] 97.6-99.6 November 18, 2018 10:02am Heart Rate 74 /min 60-90 November 18, 2018 10:02am Respiratory rate 18 /min -November 18, 2018 10:02am Oxygen saturation by 95 % 95-100 October 312018 Pulse oximetry 10:02am BP Systolic 106 mm[Hg] 110-140 November 18, 2018 10:02am BP Diastolic 59 mm[Hg] 60-90 November 18, 2018 10:02am BMI (Body Mass Index) 30.0 kg/m2 November 18, 2018 10:02am Height 162.56 cm November 22, 2018 9:49am Weight 77.56 kg November 22, 2018 9:49am BP Systolic 110 mm[Hg] 110-140 November 22, 2018 9:49am BP Diastolic 56 mm[Hg] 60-90 November 22, 2018 9:49am BMI (Body Mass Index) 29.3 kg/m2 November 22, 2018 9:49am Height 162.56 cm November 25, 2018 11:54am Weight 78.64 kg November 25, 2018 11:54am BP Systolic 110 mm[Hg] 110-140 November 25, 2018 11:54am BP Diastolic 60 mm[Hg] 60-90 November 25, 2018 11:54am BMI (Body Mass Index) 29.7 kg/m2 November 25, 2018 11:54am Body Temperature 97.9 [degF] 97.6-99.6 November 25, 2018 1:22pm Heart Rate 79 /min 60-90 November 25, 2018 1:22pm Respiratory rate 18 /min -November 25, 2018 1:22pm Oxygen saturation by 98 % 95-100 October 312018 Pulse oximetry 1:22pm BP Systolic 128 mm[Hg] 110-140 November 25, 2018 1:22pm BP Diastolic 74 mm[Hg] 60-90 November 25, 2018 1:22pm Height 162.56 cm November 28, 2018 10:37am Weight 79.15 kg November 28, 2018 10:37am BP Systolic 112 mm[Hg] 110-140 November 28, 2018 10:37am BP Diastolic 80 mm[Hg] 60-90 November 28, 2018 10:37am BMI (Body Mass Index) 29.9 kg/m2 November 28, 2018 10:37am Height 162.56 cm December 07 3:11pm Weight 78.58 kg December 07 3:11pm BP Systolic 110 mm[Hg] 110-140 December 07 3:11pm BP Diastolic 58 mm[Hg] 60-90 December 07 3:11pm BMI (Body Mass Index) 29.7 kg/m2 November 3:11pm Height 162.56 cm December 07 3:57pm Weight 78.10 kg December 07 3:57pm Body Temperature 98.2 [degF] 97.6-99.6 December 07 3:57pm Heart Rate 80 /min 60-December 07 3:57pm Respiratory rate 18 /min -December 07 3:57pm Oxygen saturation by 95 % 95-100 November Pulse oximetry 3:57pm BP Systolic 100 mm[Hg] 110-140 December 07 3:57pm BP Diastolic 56 mm[Hg] 60-90 December 07 9 3:57pm BMI (Body Mass Index) 29.5 kg/m2 November 3:57pm Height 162.56 cm December 08 3:59pm Weight 78.01 kg December 08 3:59pm Body Temperature 98.1 [degF] 97.6-99.6 December 08 019 3:59pm Heart Rate 104 /min 60-December 08 3:59pm Respiratory rate 18 /min -December 08 2 019 3:59pm Oxygen saturation by 95 % 95-100 November Pulse oximetry 3:59pm BP Systolic 113 mm[Hg] 110-140 December 08 3:59pm BP Diastolic 65 mm[Hg] 60-90 December 08 3:59pm BMI (Body Mass Index) 29.5 kg/m2 December 082018 3:59pm Height 162.56 cm December 19 1:35pm Weight 80.28 kg December 19, 1:35pm BP Systolic 122 mm[Hg] 110-140 December 19, 1:35pm BP Diastolic 60 mm[Hg] 60-90 December 19, 1:35pm BMI (Body Mass Index) 30.4 kg/m2 December 192018 1:35pm Height 162.56 cm December 27, 9:18am Weight 80.45 kg December 27, 9:18am BP Systolic 120 mm[Hg] 110-140 December 27, 9:18am BP Diastolic 80 mm[Hg] 60-90 December 27, 9:18am BMI (Body Mass Index) 30.4 kg/m2 December 272018 9:18am Height 162.56 cm January 02, 10:11am Weight 80.79 kg January 02, 10:11am BP Systolic 118 mm[Hg] 110-140 January 02, 10:11am BP Diastolic 68 mm[Hg] 60-90 January 02, 10:11am BMI (Body Mass Index) 30.5 kg/m2 January 022018 10:11am Height 162.56 cm January 03, 12:13pm Weight 80.73 kg January 03, 12:13pm Body Temperature 98.3 [degF] 97.6-99.6 January 03, 2 019 12:13pm Heart Rate 92 /min 60-January 03, 12:13pm Respiratory rate 18 /min -January 03, 2 019 12:13pm Oxygen saturation by 97 % 95-100 December Pulse oximetry 12:13pm BP Systolic 112 mm[Hg] 110-140 January 03, 12:13pm BP Diastolic 64 mm[Hg] 60-90 January 03, 12:13pm BMI (Body Mass Index) 30.5 kg/m2 January 032018 12:13pm Height 162.56 cm January 09, 2 019 10:44am Weight 81.19 kg January 09, 2 019 10:44am BP Systolic 106 mm[Hg] 110-140 January 09, 2 019 10:44am BP Diastolic 72 mm[Hg] 60-90 January 09, 2 019 10:44am BMI (Body Mass Index) 30.7 kg/m2 December 302018 10:44am Height 162.56 cm January 17, 2 019 9:17am Weight 81.64 kg January 17, 2 019 9:17am BP Systolic 118 mm[Hg] 110-140 January 17, 2 019 9:17am BP Diastolic 70 mm[Hg] 60-90 January 17, 2 019 9:17am BMI (Body Mass Index) 30.9 kg/m2 December 302018 9:17am Height 162.56 cm January 23, 2 019 10:28am Height 162.56 cm January 24, 2 019 2:31pm Weight 82.55 kg January 24, 2 019 2:31pm Body Temperature 98.4 [degF] 97.6-99.6 January 24, 2019 2:31pm Heart Rate 91 /min 60-January 24, 019 2:31pm Respiratory rate 18 /min -January 24, 2019 2:31pm Oxygen saturation by 99 % 95-100 January 242018 Pulse oximetry 2:31pm BP Systolic 130 mm[Hg] 110-140 January 24, 2 019 2:31pm BP Diastolic 70 mm[Hg] 60-90 January 24, 2 019 2:31pm BMI (Body Mass Index) 31.2 kg/m2 December 312018 2:31pm Height 162.56 cm January 30 12:11pm Weight 81.70 kg January 30 12:11pm BP Systolic 110 mm[Hg] 110-140 January 30 12:11pm BP Diastolic 64 mm[Hg] 60-90 January 30 12:11pm BMI (Body Mass Index) 30.9 kg/m2 January 302018 12:11pm Height 162.56 cm February 04 2:27pm Weight 81.64 kg February 04 2:27pm Body Temperature 97.8 [degF] 97.6-99.6 February 04, 019 2:27pm Heart Rate 88 /min 60-February 04 2:27pm Respiratory rate 20 /min -February 04, 019 2:27pm Oxygen saturation by 96 % 95-100 January Pulse oximetry 2:27pm BP Systolic 121 mm[Hg] 110-140 February 04 2:27pm BP Diastolic 72 mm[Hg] 60-90 February 04 2:27pm BMI (Body Mass Index) 30.9 kg/m2 February 042018 2:27pm Height 162.56 cm February 06 8:59am Weight 82.55 kg February 06 8:59am Body Temperature 97.7 [degF] 97.6-99.6 February 07, 2019 8:14am Heart Rate 70 /min -February 07, 019 8:40am Respiratory rate 18 /min -February 07, 2019 8:40am Oxygen saturation by 96 % 95-100 February 072018 Pulse oximetry 8:40am BP Systolic 119 mm[Hg] 110-140 February 07, 2 019 8:40am BP Diastolic 71 mm[Hg] 60-90 February 07, 019 8:40am BMI (Body Mass Index) 31.2 kg/m2 February 062018 8:59am Hospital Discharge Instructions Additional Instructions Drink plenty fluids, take medications as prescribed.
[2019-02-08 05:28] VITALS: BP 134/67
--- NOTE | 2019-02-08 09:31 | Discharge Summary ---
General - General Admission date:: 02/06/19 Discharge date: 02/08/19 HPI HPI: She is a 28-year-old 5 now para 5 who is 39 weeks gestational age. She has had labor since about 28 weeks and as result of that we elected to augment her labor at term. She also expressed desire for sterilization. Hospital Course Hospital Course: She was started on IV oxytocin had her membranes ruptured. She progressed under labor epidural to full dilation and delivered spontaneously a liveborn female child. On her first day she underwent a bilateral tubal ligation through a small subumbilical incision. She has done well postoperatively and has remained afebrile throughout her hospitalization. She does complain of cough. She is a heavy smoker. She is discharged home to follow-up with me in approximately 2 weeks time. She will continue with her vitamins and iron. She is given a prescription for Percocet 5/325 number 20 tablets. She was given a prescription for Motrin 400 mg number 40 tablets. She was given a prescription for Bactrim for her cough and she also had a small amount of redness just below her incision. It is really only been 24 hours post surgery though. She also was given a prescription for a nicotine patch. She was given the usual instructions with respect to limiting her activity, driving and sexual activity. Her condition on discharge is stable and improved. Rhogam Administration: Not Indicated Objective Vital signs: Temp Pulse Resp BP Pulse Ox 98.5 F 87 18 134/67 96 02/08/19 04:08 02/08/19 04:08 02/08/19 04:08 02/08/19 04:08 02/07/19 19:41 no acute distress - *Routine Abdominal Exam Present: soft, surgical scars DS: Diagnosis - Discharge Diagnosis (1) Normal delivery at term Status: Acute Discharge Plan - Patient Discharge Instructions ACTIVITY: No heavy lifting DIET: continue same diet Additional Instructions: NO HEAVY LIFTING OF STRENUOUS ACTIVITY NOTHING IN VAGINA FOR 6 WEEKS NO DRIVING WHILE TAKING PRESCRIPTION PAIN MEDICATION Patient Instructions: How to Care for a Surgical Wound, Depression, Hemorrhage, [facility] Post Discharge Instructions - Follow up Plan Home Medications: Home Medications Medication Instructions Recorded Confirmed Type ferrous sulfate 325 mg (65 mg 325 mg PO DAILY #30 tab 11/16/18 02/06/19 History iron) tablet ondansetron 4 mg disintegrating 4 mg PO Q6H PRN #30 tab 01/23/19 02/06/19 Rx tablet Loratadine [Allergy Relief] 10 mg PO DAILY 02/06/19 02/06/19 History Ibuprofen [Motrin 400mg 400 mg PO Q4HP PRN #40 tab 02/08/19 Rx tablet] Nicotine [Nicotine Patch 21 mg TD DAILY #30 patch 02/08/19 Rx 21mg/24hrs] Oxycodone HCl/Acetaminophen 1 - 2 tab PO Q4-6H PRN #20 tab 02/08/19 Rx [Percocet 5/325mg tablet] Prescriptions/Medication Reconciliation: New Ibuprofen [Motrin 400mg tablet] 400 mg PO Q4HP PRN #40 tab PRN Reason: Moderate Pain Oxycodone HCl/Acetaminophen [Percocet 5/325mg tablet] 1 - 2 tab PO Q4-6H PRN #20 tab PRN Reason: Severe Pain Nicotine [Nicotine Patch 21mg/24hrs] 21 mg TD DAILY #30 patch Continued ondansetron 4 mg disintegrating tablet 4 mg PO Q6H PRN #30 tab PRN Reason: nausea and vomiting ferrous sulfate 325 mg (65 mg iron) tablet 325 mg PO DAILY #30 tab Loratadine [Allergy Relief] 10 mg PO DAILY - Problem Reconciliation Problems Reviewed?: Yes
== END 2019-02-08 12:20 | disposition home or self-care (01) | DRG 798 ==
LOC: OB 05:16
PROVIDERS: ADMIT Nurse Practitioner Obstetrics & Gynecology; ATTEND Nurse Practitioner Obstetrics & Gynecology
CPT/HCPCS: C1758

== ENCOUNTER → 2021-11-19 12:47 | Outpatient (CLI) | payer OTHER, SELFPAY ==
--- NOTE | 2021-11-19 12:47 | US_ITS ---
FINAL REPORT CLINICAL HISTORY: Rt. Ovarian cyst seen on ct FINDINGS: Transvaginal sonographic images of the pelvis were obtained. The uterus measures 9.4 x 4.4 x 4.7 cm. The endometrium is within normal limits. The right ovary measures 4.0 x 2.1 x 1.7 cm. The left ovary measures 2.5 x 1.4 x 2.0 cm. There are small cysts or follicles in both ovaries. No pelvic free fluid is identified. IMPRESSION: Small cysts or follicles in both ovaries. Reviewed, Interpreted and Dictated by Connor Aburto MD Transcribed by Liyah Andrews Authenticated and [facility]
== END ==
PROVIDERS: PCP Nurse Practitioner; Visit Provider Nurse Practitioner Obstetrics & Gynecology
DX: R10.2 Pelvic and perineal pain (principal); N83.209 Unspecified ovarian cyst, unspecified side
CPT/HCPCS: 76830

== ENCOUNTER → 2022-01-07 10:23 | Outpatient (CLI) | payer OTHER, SELFPAY ==
[2022-01-07 11:03] LABS: Basophils # 0.1 K/mm3 (0-0.2); Basophils % 1.1 % (0.1-2.0); Eosinophils # 0.2 K/mm3 (0.0-0.4); Eosinophils % 2.8 % (0.1-12.0); Hematocrit 41.5 % (37.0-47.0); Hemoglobin 12.9 g/dL (12.2-16.2); Lymphocytes # 2.7 K/mm3 (0.7-4.5); Lymphocytes % 34.5 % (10-50); Mean Corpuscular Hemoglobin 29.3 pg (27.0-31.2); Mean Corpuscular Volume 94.6 fl (81-99); Mean Platelet Volume 8.1 fl (7.4-10.4); Monocytes # 0.4 K/mm3 (0.1-1.0); Monocytes % 5.6 % (1.7-9.3); Neutrophils # 4.3 K/mm3 (1.8-7.8); Platelet Count 379 K/mm3 (142-424); Red Blood Count 4.39 M/mm3 (4.20-5.40); Red Cell Distribution Width 13.8 % (11.5-17.5); White Blood Count 7.7 K/mm3 (4.8-10.8)
[2022-01-07 11:18] LABS: Alanine Aminotransferase 28 U/L (12-78); Albumin Level 4.1 g/dl (3.5-5.0); Albumin/Globulin Ratio 1.6 (1.1-1.8); Alkaline Phosphatase 96 U/L (38-126); Anion Gap 12.8 mEq/L (5-15); Aspartate Amino Transferase 27 U/L (14-36); Blood Urea Nitrogen 14 mg/dl (7-17); Calcium 9.5 mg/dl (8.4-10.2); Carbon Dioxide 28 mmol/L (22.0-30.0); Chloride 104 mmol/L (98-107); Estimated Glomerular Filt Rate 115 ml/min (>60); GFR (African American) 139 ML/MIN (>60); Globulin 2.5 g/dL (1.3-3.2); Glucose 64 mg/dl (74-100); Potassium 3.8 mmoL/L (3.5-5.1); Sodium 141 mmol/L (136-145); Total Protein,Serum 6.6 g/dl (6.3-8.2)
[2022-01-07 11:26] LABS: Bilirubin,Total < 0.1 mg/dl (0.2-1.3)
[2022-01-07 11:44] LABS: HCG,Quantitative < 2 mIU/ml (0-5.42)
== END ==
PROVIDERS: Visit Provider Nurse Practitioner Obstetrics & Gynecology
DX: Z01.812 Encounter for preprocedural laboratory examination (principal); N92.0 Excessive and frequent menstruation with regular cycle
CPT/HCPCS: 36415; 80053; 84702; 85025

== ENCOUNTER 2022-01-09 07:04 | Day surgery (SDC) | payer OTHER, SELFPAY ==
[2022-01-09 07:26] VITALS: BP 123/77; PULSE 68; RESP 18; TEMP 36.3; O2SAT 100; BMI 34.8
--- NOTE | 2022-01-09 08:08 | EXP.ANES.CKL ---
PFSH PFS Surgical History Hx of cholecystectomy Hx of dilation and curettage Hx of tubal ligation Family History (Updated 01/09/22 @ 07:28 by Claudia Ward RN) Other Family history of COPD (chronic obstructive pulmonary disease) Family history of hyperlipidemia Social History (Updated 01/09/22 @ 07:30 by Claudia Ward RN) Smoking Status: Current every day smoker tobacco type: cigarettes packs per day: 1 pack-years: 20 alcohol intake: never substance use type: denies use current occupational status: employed and unemployed Travel in the last 8 weeks: None adopted: No caregiver/support person: No foster care: No special tyrell needs: No agree to transfusion: No do you feel safe at home: Yes victim of physical abuse: No victim of emotional abuse: No victim of sexual abuse: No would you like helpful sources: No [facility] Anesthesia Checklist Patient Identification Patient Identification: Arm Band Structural Data Admitted From: Home Planned Operative Procedure/s: Hysteroscopy, D&C, Novasure Ablation Consent for Planned Operative Procedure(s) Verified: Yes Verified Documents: Surgical Consent and History and Physical NPO Status Verified Time NPO: 00:00 Additional verifications Anesthesia Reactions: No Hx Blood Transfusions: No Blood Transfusion Reaction: No Airway Assessment C-Spine Mobility Assessed: Yes TMJ Mobility Assessed: Yes Dentition: Good Dentition Neurological Assessment Level of Consciousness: Awake and Alert Anesthesia Plan Anesthesia Risk discussed: Yes Anesthesia Plan: Verified ASA Class: II Anesthesia Type: General
[2022-01-09 09:33] VITALS: BP 121/75; PULSE 83; RESP 18; TEMP 36.1; O2SAT 94
[2022-01-09 09:43] VITALS: BP 123/78; PULSE 64; RESP 18; O2SAT 97
[2022-01-09 09:44] VITALS: TEMP 43
--- NOTE | 2022-01-09 09:47 | P.OP_ITS ---
Date of procedure: 01/09/22 Pre-op Diagnosis:: Menorrhagia Post-op Diagnosis:: Menorrhagia Procedure performed:: Hysteroscopy, dilation and curettage, NovaSure ablation Surgeon:: Tee Hernandez MD ESTHETICIAN/SKIN THERAPIST:: Stanley Bey Anesthesia: MAC Estimated blood loss (mL): 50 Clinical Note:: She is a 31-year-old lady who complains of extremely heavy periods. After having discussed the risks and benefits we elected perform a hysteroscopy, D&C and NovaSure ablation. Operative findings:: She had an anteverted normal uterus. The endometrial cavity appeared normal. The length of the uterus was 8 cm. Operative note:: She was taken to the operating room where LMA anesthesia was found be adequate. She was prepped and draped in the normal sterile fashion in the lithotomy position. A weighted speculum was placed in the vagina and the anterior lip of the cervix was grasped with a tenaculum. The cervix was then dilated to approximately 6 mm. I then inserted a hysteroscope into the uterine cavity and the findings were as previously dictated. I then performed a gentle curettage with a medium curette. I then sounded the uterus and determine the length of the uterus. I then in serted the NovaSure device and determine the width of the endometrial cavity. The length of the endometrial cavity was 6 cm. The width was 4.4 cm. This was placed into the NovaSure device. I then ran the device through its program. I further inspected the endometrial cavity and was found to be completely charred. I then injected 30 cc of 0.5% ropivacaine at the 3:00, 5:00, 7:00, and 9:00 positions of the cervix. She tolerated procedure well and was taken to the recovery room in excellent condition. All sponge and instrument counts were correct. The estimated blood loss was less than 50 cc. Condition: stable Disposition: PACU Specimens:: Endometrial curettings Complications:: None
[2022-01-09 09:53] VITALS: BP 124/81; PULSE 63; RESP 18; O2SAT 97
[2022-01-09 10:28] VITALS: BP 116/76; PULSE 75; RESP 18; O2SAT 100
== END 2022-01-09 10:28 | disposition home or self-care (01) ==
PROVIDERS: PCP Nurse Practitioner; Visit Provider Nurse Practitioner Obstetrics & Gynecology
PROC: 0U5B8ZZ Destruction of Endometrium, Via Natural or Artificial Opening Endoscopic (ICD-10-PCS; CPT 58563; principal; 2022-01-09 08:45)
DX: N92.0 Excessive and frequent menstruation with regular cycle (principal); N72 Inflammatory disease of cervix uteri; Z72.0 Tobacco use
CPT/HCPCS: 58563; 96374; J2405

== ENCOUNTER → 2022-09-24 09:53 | Outpatient (CLI) | payer OTHER, SELFPAY ==
--- NOTE | 2022-09-24 09:53 | US_ITS ---
PROCEDURE: US TRANSVAGINAL CLINICAL INDICATION: left lower quadrant pain COMPARISON: No exams were available for comparison FINDINGS: Transvaginal sonographic images of the pelvis were obtained. UTERUS: 8cm x 5cmx 4cm with a combined endometrial thickness of 4.3mm. Post ablation changes to the endometrium with a small fundal cystic area in the myometrium measuring 9 mm. There are several cervical nabothian cysts. The largest is 11 mm. LEFT OVARY: 0lut1jou5.8cm with a volume of 10ml. There are several small follicles. There is a dominant follicle measuring 1 cm x 1 cm by 0.7 cm. RIGHT OVARY: 3cmx [id number] with a volume of 4.5ml. There are several small follicles in the right ovary. The largest is 7 mm. Both ovaries are seen and appear normal. Doppler flow to both ovaries are seen. There is no fluid in the cul-de-sac. IMPRESSION: 1. Normal size anteverted uterus with post ablation changes. The endometrium is thin. 2. Several small nabothian cysts in the cervix. 3. Both ovaries appear normal with each having a few small follicles. 4. No fluid in the cul-de-sac. Dictated by: Tee Hernandez MD 09/24/2022 11:33 Tee Hernandez MD in OV 09/24/2022 11:33
== END ==
PROVIDERS: PCP Nurse Practitioner; Visit Provider Nurse Practitioner Obstetrics & Gynecology
DX: R10.32 Left lower quadrant pain (principal)
CPT/HCPCS: 76830

== ENCOUNTER → 2022-10-21 10:04 | Outpatient (CLI) | payer OTHER, SELFPAY ==
[2022-10-21 11:07] LABS: Basophils # 0.1 K/mm3 (0-0.2); Basophils % 0.7 % (0.1-2.0); Eosinophils # 0.2 K/mm3 (0.0-0.4); Hematocrit 43.8 % (37.0-47.0); Hemoglobin 14.1 g/dL (12.2-16.2); Lymphocytes # 2.2 K/mm3 (0.7-4.5); Lymphocytes % 29.6 % (10-50); Mean Corpuscular HGB Conc 32.2 g/dL (31.8-35.4); Mean Corpuscular Hemoglobin 29.3 pg (27.0-31.2); Mean Platelet Volume 8.7 fl (7.4-10.4); Monocytes # 0.5 K/mm3 (0.1-1.0); Monocytes % 6.6 % (1.7-9.3); Neutrophils # 4.4 K/mm3 (1.8-7.8); Neutrophils % 60.1 % (37.0-80.0); Platelet Count 367 K/mm3 (142-424); Red Blood Count 4.82 M/mm3 (4.20-5.40); Red Cell Distribution Width 13.4 % (11.5-17.5); White Blood Count 7.3 K/mm3 (4.8-10.8)
[2022-10-21 11:38] LABS: Chloride 105 mmol/L (98-107)
[2022-10-21 11:39] LABS: Sodium 140 mmol/L (136-145)
[2022-10-21 11:41] LABS: Alanine Aminotransferase 24 U/L (12-78); Alkaline Phosphatase 89 U/L (38-126); Aspartate Amino Transferase 24 U/L (14-36); Bilirubin,Total 0.4 mg/dl (0.2-1.3); Blood Urea Nitrogen 13 mg/dl (7-17); Carbon Dioxide 26 mmol/L (22.0-30.0); Estimated Glomerular Filt Rate 96 ml/min (>60); GFR (African American) 116 ML/MIN (>60)
[2022-10-21 11:42] LABS: Albumin Level 4.2 g/dl (3.5-5.0); Albumin/Globulin Ratio 1.5 (1.1-1.8); Calcium 9.9 mg/dl (8.4-10.2); Globulin 2.8 g/dL (1.3-3.2); Glucose 91 mg/dl (74-100)
[2022-10-21 11:47] LABS: HCG,Quantitative < 2 mIU/ml (0-5.42)
== END ==
PROVIDERS: Visit Provider Nurse Practitioner Obstetrics & Gynecology
DX: Z01.812 Encounter for preprocedural laboratory examination (principal); N83.202 Unspecified ovarian cyst, left side
CPT/HCPCS: 36415; 80053; 84702; 85025

== ENCOUNTER 2022-10-28 08:44 | Observation (INO) | payer OTHER, SELFPAY ==
[2022-10-27 09:49] VITALS: BMI 35.0
[2022-10-28] VITALS (27 sets, daily range): BP systolic 105–142; BP diastolic 56–99; PULSE 57–120; RESP 14–22; TEMP 36.4–43; O2SAT 89–100
--- NOTE | 2022-10-28 06:43 | EXP.ANES.CKL ---
[facility] Disclaimer: The information contained in this section may have been updated after the patient was seen, as this information can be updated by other users. Medical History Asthma Pelvic pain Surgical History History of endometrial ablation History of tonsillectomy Hx of cholecystectomy Hx of dilation and curettage Hx of tubal ligation Family History Grandmother Cancer Other Family history of COPD (chronic obstructive pulmonary disease) Family history of hyperlipidemia Family history of stroke Social History Smoking Status: Current every day smoker tobacco type: cigarettes packs per day: 1 pack-years: 20 alcohol intake: never substance use type: denies use current occupational status: employed and unemployed Travel in the last 8 weeks: None adopted: No caregiver/support person: No foster care: No special tyrell needs: No agree to transfusion: No do you feel safe at home: Yes victim of physical abuse: No victim of emotional abuse: No victim of sexual abuse: No would you like helpful sources: No [facility] Anesthesia Checklist Patient Identification Patient Identification: Arm Band and Verbal (Name & ) Structural Data Admitted From: Home Planned Operative Procedure/s: [facility] Consent for Planned Operative Procedure(s) Verified: Yes Verified Documents: Surgical Consent NPO Status Verified Time NPO: 00:00 Additional verifications Anesthesia Reactions: No (difficulty urinating) Hx Blood Transfusions: No Blood Transfusion Reaction: No Cephalosporin Allergy: No Cardiovascular Assessment Peripheral Edema: No Airway Assessment Mallampati Score:: Class I C-Spine Mobility Assessed: Yes TMJ Mobility Assessed: Yes Dentition: Good Dentition Neurological Assessment Level of Consciousness: Awake and Alert Hx Seizures: No Anesthesia Plan Anesthesia Risk discussed: Yes ASA Class: II Anesthesia Type: General
--- NOTE | 2022-10-28 08:46 | HMH.PHAINT1 ---
Pharmacy Intervention Comments: MEDICATION RECONCILIATION COMPLETED ON PATIENT USING EXTERNAL FILL HISTORY FROM PHARMACY AND CORNELIO REPORT. -EMILIA DURBIN, KALID
--- NOTE | 2022-10-28 09:25 | EXP.OP.NOTE ---
Date of procedure: 10/28/22 Pre-op Diagnosis:: Severe pelvic pain, dysmenorrhea, left lower quadrant pain Post-op Diagnosis:: Severe pelvic pain, dysmenorrhea, left lower quadrant pain, pelvic congestion syndrome Procedure performed:: Laparoscopically assisted vaginal hysterectomy, left salpingo-oophorectomy, right salpingectomy Surgeon:: Tee Hernandez MD Diet Counselor(s):: Dr. Chanel KEG RAISER:: Jalen Mattson Anesthesia: GETA Estimated blood loss (mL): 100 Clinical Note:: She is a 32-year-old lady who complains of severe pelvic pain. She had a previous ablation. Ultrasound was essentially normal. She also has severe left-sided pain that comes and goes. When I examined her uterus it was exquisitely tender. After having discussed the risks and benefits we will provide a laparoscopic-assisted vaginal hysterectomy, left salpingo-oophorectomy and left salpingectomy. Operative findings:: She had a normal-appearing anteverted uterus. The uterus had a somewhat boggy feel to it. Both ovaries were seen and appeared normal. The tubes appeared normal. She had previous tubal ligations and there were Filshie clips superior to the uterus along the bladder flap. Operative note:: She was taken to the operating room where general anesthesia was found be adequate. She was prepped and draped in normal sterile fashion in the semilithotomy position. A weighted speculum was placed in the vagina and the anterior lip of the cervix was grasped with a tenaculum. An acorn uterine manipulator was then placed within the cervical os. I then changed gloves. I injected 10 cc of 0.5% ropivacaine around the umbilicus and made a small incision within the umbilicus. I inserted a Veress needle into the abdominal cavity. The abdominal cavity was then insufflated with carbon dioxide gas to a pressure of 20 mmHg. I then inserted an 11 mm trocar under direct vision. I injected through and through the pubic hairline, made a small incision here and inserted a 5 mm trocar under direct vision. I identified the inferior epigastric arteries on the left side, went lateral to these and injected through and through. I then made a small incision and inserted an 11 mm trocar under direct vision. A similar 11 mm trocar was placed on the right side. The left round ligament was then grasped and cut through with harmonic scalpel. This was followed by opening up the peritoneum anteriorly to the midline. I then grasped the remnant of the tube on the left side and cut through this. This is followed by cutting through the left utero-ovarian ligament. The left utero-ovarian ligament was quite congested. I used Harmonic scalpel on the coagulation mode. I then took down the posterior aspect of the broad ligament to the level of the uterosacral ligament. I then skeletonized the uterine arteries on the left side and placed hemoclips on these. Using the harmonic scalpel on coagulation mode adjacent to the cervix I then took down these uterine arteries. I then further freed up the bladder anteriorly and laterally on the left side. I then turned my attention to the right side where I grasped the right round ligament. I cut through the right tube mesosalpinx. I then cut through the right round ligament. I then took down the anterior peritoneum to the midline joining up with the other side. I further dissected the bladder off. The posterior aspect of the right broad ligament was then taken down with harmonic scalpel. I skeletonized the uterine arteries on the right side. I applied hemoclips to the uterine arteries and staying adjacent to the cervix on the right side I took down the uterine arteries with harmonic scalpel on coagulation mode. I further freed up the bladder. We then assured hemostasis. I then grasped the distal end of the right tube and using harmonic scalpel I cut along the mesosalpinx. The tube was removed through the 11 mm trocar site. On the patient's left side I grasped the tube and ov
--- NOTE | 2022-10-28 09:34 | EXP.ANES.I ---
[facility] Anesthesia Record Part I Anesthesia Record I Intake, IV Amount: 850 Hydration: Adequate Estimated blood loss (mL): 100 Urine output (mL): 150 Blood Pressure: 122/58 SaO2: 95 Pulse Rate: 116 Airway Patency: Patent Respiratory Rate: 22 Temperature: 98.6 F Patient is:: Awake Stable to PACU at:: 09:31
--- NOTE | 2022-10-28 10:05 | PC.NURSE ---
Report received from Eileen CLIFFORD from PACU. Pt. with 4 lap sites on abd, T&T, with Mastistol and steri strips. no drainage on dressings. Small amount of pink vaginal bleeding on peripad. F/C in place draining small amount of clear yellow urine. 2mg of diliaudid given for 10/10 rated pain. VSS. Pt. on nonrebreather mask due to pt. not tolerating NC. O2 between 97-99%. Pt. has Scopalamine patch to R. EAR. RN reports pt. states I don't want to be in pain. , and refusing SCDS. This RN v/u.
--- NOTE | 2022-10-28 11:26 | SUR.PHASEI ---
1015 - Pt transported to the floor per bed by nursing staff. Amy EppersonRN at bedside upon arrival. Dressings x4 to abdomen remain C/D/I. Small amount of vaginal bleeding noted on lyndsey pad. Bed left in lowest locked position. Call elgin w/in reach. Attempted to locate pt's at this time but he was not in lobby.
--- NOTE | 2022-10-28 13:00 | P.PNANES_ITS ---
[facility] Anesthesia Record Part II Anesthesia Record Part II Discharge Time: 10:15 Destination: Obstetric PACU nurse assessment reviewed?: Yes Patient Condition:: Good Anesthesia Complications:: None Swallowing reflex intact?: Yes Airway Patency: Patent Cyanosis?: No Blood Pressure: 118/66 SaO2: 95 Respiratory Rate: 15 Pulse Rate: 90 Temperature: 98.6 F Mental Status: Alert & Oriented Pain level:: 10 (Treated with Dilauded 2mg, Demerol 25 mg, and Versed 2mg for Anxiety in PACU) Nausea and/or vomitting:: None Intake, IV Amount: 0 Hydration: Adequate
--- NOTE | 2022-10-28 14:23 | PC.NURSE ---
Nurse offered abd binder to pt to relieve pain. Pt verbalized understanding and requested abd binder. Abd binder in place. Pt reports increased comfort.
--- NOTE | 2022-10-28 14:31 | PC.NURSE ---
Pt bowel sounds still hypoactive in all 4 quadrants. Nurse educated pt on importance of chewing gum and eating clear foods as tolerated to promote bowel sounds and passing of gas. Pt verbalized understanding. Pt requests to know next pain dose time. Nurse educated on pt pain med not available until 1530. Tylenol and tordol available at 1500. Pt verbalized understanding and denied further needs.
[2022-10-28 14:37] LABS: Microscopic,Cath URINE MICROSCOPIC (MICROSCOPIC)
[2022-10-28 14:50] LABS: Appearance,Urine/Cath Clear (Clear); Blood, Urine/Cath 2+ (Negative); Color,Urine/Cath Yellow (Yellow); Glucose,Urine/Cath (UA) Negative (Negative); Nitrate,Cath Negative (Negative); Protein,Urine/Cath Negative (Negative); Specific Gravity, Urine/Cath 1.025 (1.005-1.030)
[2022-10-28 14:51] LABS: Bilirubin,Cath Negative (Negative); Ketones,Urine/Cath 1+ (Negative); Leukocyte Esterase,Cath Negative (Negative); Urobilinogen,Cath 0.2 EU/dl (0.2)
[2022-10-28 15:29] LABS: Squamous Epithelial Ur./Cath Occasional #/hpf (0-5); WBC,Urine/Cath Occasional #/hpf (0-3)
--- NOTE | 2022-10-28 19:09 | PC.NURSE ---
All care and documentation by Carmine Blanco foreign exchange student coordinator was under my direct supervision.
--- NOTE | 2022-10-28 20:00 | PC.NURSE ---
Assessment done at this time, pt medicated per apr for pain reported to be a 9. Pt reports not wanting to get up and walk at this time however and educated throughly on the benfits of moving around. Pt assisted to the restroom, output noted in meditech. Iv patent and infusing well. 3 incision sights to belly, one on navel, one below and one to side, all clean dry and intact with surgical dressings over them. Bowel sounds normoactive, no swelling noted. Pt tolerating diet well, educated on ambulating and moving around and chewing gum to help with gas pain, pt v/u at this time. lung sounds Clear throughout. cb within reach
[2022-10-29 00:08] VITALS: BP 98/55; PULSE 53; RESP 18; TEMP 37.1; O2SAT 98
[2022-10-29 04:00] VITALS: BP 96/47; PULSE 67; RESP 18; TEMP 36.9; O2SAT 98
--- NOTE | 2022-10-29 04:39 | PC.NURSE ---
Reassessment at this time, pt reports pain, medicated per mar, pt encouraged to walk and to cough and deep breath, pt v/u at this time but declines inventions at this time. All 4 surgical sights clean dry and intact, no drainage noted. Lungs clear throughout, bowel sounds active in all quadrants. iv patent and saline locked at this time. pts output has been good all night, pt encouraged to drink water but reports that pop is the only thing she drinks pt educated on gas and soda drinking pt declines water at this time. vss throughtout the night. cb within reach
[2022-10-29 07:03] LABS: Basophils % 0.3 % (0.1-2.0); Eosinophils # 0.2 K/mm3 (0.0-0.4); Eosinophils % 1.9 % (0.1-12.0); Hematocrit 36.1 % (37.0-47.0); Hemoglobin 11.7 g/dL (12.2-16.2); Lymphocytes # 2.9 K/mm3 (0.7-4.5); Lymphocytes % 29.9 % (10-50); Mean Corpuscular HGB Conc 32.4 g/dL (31.8-35.4); Mean Corpuscular Hemoglobin 30.2 pg (27.0-31.2); Mean Corpuscular Volume 93.1 fl (81-99); Mean Platelet Volume 8.2 fl (7.4-10.4); Monocytes # 0.5 K/mm3 (0.1-1.0); Monocytes % 5.1 % (1.7-9.3); Neutrophils # 6.1 K/mm3 (1.8-7.8); Neutrophils % 62.8 % (37.0-80.0); Platelet Count 295 K/mm3 (142-424); Red Blood Count 3.87 M/mm3 (4.20-5.40); Red Cell Distribution Width 13.5 % (11.5-17.5); White Blood Count 9.8 K/mm3 (4.8-10.8)
[2022-10-29 07:29] LABS: Anion Gap 12.4 mEq/L (5-15); Blood Urea Nitrogen 8 mg/dl (7-17); Calcium 8.1 mg/dl (8.4-10.2); Carbon Dioxide 21 mmol/L (22.0-30.0); Chloride 110 mmol/L (98-107); Creatinine Clearance Estimated 193 mL/min (50-200); Estimated Glomerular Filt Rate 114 ml/min (>60); GFR (African American) 138 ML/MIN (>60); Glucose 122 mg/dl (74-100); Potassium 3.4 mmoL/L (3.5-5.1); Sodium 140 mmol/L (136-145)
[2022-10-29 07:45] VITALS: BP 100/54; PULSE 68; RESP 17; TEMP 36.9; O2SAT 97
--- NOTE | 2022-10-29 07:45 | PC.NURSE ---
Pt. asking for more Mt. Dew. Pt. encouraged to increase water intake. Pt. admits she doesn't like water. Pt. reports having some hesitency when urinating. Pt. once again encouraged to decrease caffeine intake, increase water intake, and report if she is unable to void. Pt. voices desire to go home today. Pt. had no other questions/ concerns at this time.
--- NOTE | 2022-10-29 08:20 | PC.NURSE ---
Dr. Hernandez at bedside for eval/ discussion of POC and discharge.
--- NOTE | 2022-10-29 08:39 | EXP.DC.SUM ---
General Admission date:: 10/28/22 Discharge date: 10/29/22 Exam Data for Last 24 hours Vital signs and Labs for Last 24 Hours: Temp Pulse Resp BP Pulse Ox O2 Del Method O2 Flow Rate 98.4 F 68 17 100/54 L 97 Room Air 4 10/29/22 07:45 10/29/22 07:45 10/29/22 07:45 10/29/22 07:45 10/29/22 07:45 10/29/22 07:45 10/28/22 10:15 Laboratory Results - last 24 hr 10/28/22 08:56: Urine Color Yellow, Urine Appearance Clear, Urine pH 5.0, Ur Specific Holt 1.025, Urine Protein Negative, Urine Glucose (UA) Negative, Urine Ketones 1+, Urine Blood 2+, Urine Nitrate Negative, Urine Bilirubin Negative, Urine Urobilinogen 0.2, Ur Leukocyte Esterase Negative, Urine RBC 5-10, Urine WBC Occasional, Ur Squamous Epith Cells Occasional, Urine Bacteria None 10/29/22 06:54: WBC 9.8, RBC 3.87 L, Hgb 11.7 L, Hct 36.1 L, MCV 93.1, MCH 30.2, MCHC 32.4, RDW 13.5, Plt Count 295, MPV 8.2, Neut % (Auto) 62.8, Lymph % (Auto) 29.9, Lassen % (Auto) 5.1, Eos % (Auto) 1.9, Baso % (Auto) 0.3, Neut # (Auto) 6.1, Lymph # (Auto) 2.9, Lassen # (Auto) 0.5, Eos # (Auto) 0.2, Baso # (Auto) 0.0, Sodium 140, Potassium 3.4 L, Chloride 110 H, Carbon Dioxide 21 L, Anion Gap 12.4, BUN 8, Creatinine 0.60, Estimated Creat Clear 193, Estimated GFR 114, Est GFR ( Amer) 138, Glucose 122 H, Calcium 8.1 L I & O for Last 24 hours: Intake & Output 10/26/22 10/27/22 10/28/22 10/29/22 11:59 11:59 11:59 11:59 Intake Total 850 / 850 0 / 0 Output Total 1874 Balance 850 / 850 -1874 / -1875 Weight 204 lb Results Data Completed and Pending Labs on day of discharge: Labs from last 24 hours 10/29/22 10/28/22 06:54 08:56 WBC 9.8 RBC 3.87 L Hgb 11.7 L Hct 36.1 L MCV 93.1 MCH 30.2 MCHC 32.4 RDW 13.5 Plt Count 295 MPV 8.2 Neut % (Auto) 62.8 Lymph % (Auto) 29.9 Lassen % (Auto) 5.1 Eos % (Auto) 1.9 Baso % (Auto) 0.3 Neut # (Auto) 6.1 Lymph # (Auto) 2.9 Lassen # (Auto) 0.5 Eos # (Auto) 0.2 Baso # (Auto) 0.0 Sodium 140 Potassium 3.4 L Chloride 110 H Carbon Dioxide 21 L Anion Gap 12.4 BUN 8 Creatinine 0.60 Estimated Creat Clear 193 Estimated GFR 114 Est GFR ( Amer) 138 Glucose 122 H Calcium 8.1 L Urine Color Yellow Urine Appearance Clear Urine pH 5.0 Ur Specific Holt 1.025 Urine Protein Negative Urine Glucose (UA) Negative Urine Ketones 1+ Urine Blood 2+ Urine Nitrate Negative Urine Bilirubin Negative Urine Urobilinogen 0.2 Ur Leukocyte Esterase Negative Urine RBC 5-10 Urine WBC Occasional Ur Squamous Epith Cells Occasional Urine Bacteria None Meds Home Medications and Allergies Home Medications Medication Instructions Recorded Confirmed Type albuterol sulfate 90 mcg/actuation 2 puff inhalation QID PRN Asthma 10/28/22 10/28/22 History aerosol inhaler oxycodone-acetaminophen 5 mg-325 1 tab PO Q6HP PRN Moderate Pain 10/28/22 10/28/22 History mg tablet (Percocet) (Scale Score 5-6) New Prescriptions to Start Prescriptions: Allergies Allergy/AdvReac Type Severity Reaction Status Date / Time No Known Allergies Allergy Verified 10/28/22 06:16 Discharge Plan Follow up Plan Follow up with: Tee Hernandez MD [Staff Physician] - Enter time for follow up Prescriptions/Medication Reconciliation: No Action oxycodone-acetaminophen [Percocet] 5-325 mg tablet 1 tab PO Q6HP PRN (Reason: Moderate Pain (Scale Score 5-6)) albuterol sulfate 90 mcg/actuation Hfa Aerosol Inhaler 2 puff INHALATION QID PRN (Reason: Asthma) Patient Discharge Instructions Additional Instructions: *No heavy lifting* *No strenuous activity* *No tub baths until okay'd by .* *Nothing in the vagina for 6 weeks* Patient Instructions: How to Care for a Surgical Wound, DI for Hysterectomy, DI for Postoperative Pain, Hysterectomy -- Laparoscopic Surgery Providers Primary Care Provider: Provider,Referral A
--- NOTE | 2022-10-29 08:39 | EXP.HP ---
History of Present Illness *Admission Date: 10/28/22 *Reason for visit:: Severe pelvic pain, dyspareunia, left lower quadrant pain *History of present illness: She is a 32-year-old lady who complains of extreme lower abdominal pain. The pain comes and goes. She also complains of left-sided pain that is constant. She has had a previous tubal ligation as well as endometrial ablation and despite the endometrial ablation still has pelvic pain. On examination in the office her uterus was exquisitely tender. [facility] Disclaimer: The information contained in this section may have been updated after the patient was seen, as this information can be updated by other users. Medical History Asthma Pelvic pain Surgical History History of endometrial ablation History of tonsillectomy Hx of cholecystectomy Hx of dilation and curettage Hx of tubal ligation [place] teeth extracted Family History Family history of stroke Family history of COPD (chronic obstructive pulmonary disease) Family history of hyperlipidemia Cancer Grandmother Social History Smoking Status: Current every day smoker tobacco type: cigarettes packs per day: 1 pack-years: 20 alcohol intake: never substance use type: denies use current occupational status: employed and unemployed Travel in the last 8 weeks: None adopted: No caregiver/support person: No foster care: No special tyrell needs: No agree to transfusion: No do you feel safe at home: Yes victim of physical abuse: No victim of emotional abuse: No victim of sexual abuse: No would you like helpful sources: No Review of Systems Review of Systems Review of systems:: pertinent systems reviewed and negative unless documented below Meds Home Medications and Allergies Home Medications Medication Instructions Recorded Confirmed Type albuterol sulfate 90 mcg/actuation 2 puff inhalation QID PRN Asthma 10/28/22 10/28/22 History aerosol inhaler oxycodone-acetaminophen 5 mg-325 1 tab PO Q6HP PRN Moderate Pain 10/28/22 10/28/22 History mg tablet (Percocet) (Scale Score 5-6) New Prescriptions to Start Prescriptions: Allergies Allergy/AdvReac Type Severity Reaction Status Date / Time No Known Allergies Allergy Verified 10/28/22 06:16 Exam Data for Last 24 hours Vital signs and Labs for Last 24 Hours: Temp Pulse Resp BP Pulse Ox O2 Del Method O2 Flow Rate 98.4 F 68 17 100/54 L 97 Room Air 4 10/29/22 07:45 10/29/22 07:45 10/29/22 07:45 10/29/22 07:45 10/29/22 07:45 10/29/22 07:45 10/28/22 10:15 Laboratory Results - last 24 hr 10/28/22 08:56: Urine Color Yellow, Urine Appearance Clear, Urine pH 5.0, Ur Specific [place] 1.025, Urine Protein Negative, Urine Glucose (UA) Negative, Urine Ketones 1+, Urine Blood 2+, Urine Nitrate Negative, Urine Bilirubin Negative, Urine Urobilinogen 0.2, Ur Leukocyte Esterase Negative, Urine RBC 5-10, Urine WBC Occasional, Ur Squamous Epith Cells Occasional, Urine Bacteria None 10/29/22 06:54: WBC 9.8, RBC 3.87 L, Hgb 11.7 L, Hct 36.1 L, MCV 93.1, MCH 30.2, MCHC 32.4, RDW 13.5, Plt Count 295, MPV 8.2, Neut % (Auto) 62.8, Lymph % (Auto) 29.9, [place] % (Auto) 5.1, Eos % (Auto) 1.9, Baso % (Auto) 0.3, Neut # (Auto) 6.1, Lymph # (Auto) 2.9, [place] # (Auto) 0.5, Eos # (Auto) 0.2, Baso # (Auto) 0.0, Sodium 140, Potassium 3.4 L, Chloride 110 H, Carbon Dioxide 21 L, Anion Gap 12.4, BUN 8, Creatinine 0.60, Estimated Creat Clear 193, Estimated GFR 114, Est GFR ( Amer) 138, Glucose 122 H, Calcium 8.1 L I & O for Last 24 hours: Intake & Output 10/26/22 10/27/22 10/28/22 10/29/22 11:59 11:59 11:59 11:59 Intake Total 850 / 850 0 / 0 Output Total 1874 Balance 850 / 850 -1875 / -1875 Weight 204 lb
--- NOTE | 2022-10-29 08:41 | EXP.DC.SUM ---
General Admission date:: 10/28/22 Discharge date: 10/29/22 HPI HPI HPI: She is a 32-year-old lady who complains of extreme lower abdominal pain. The pain comes and goes. She also complains of left-sided pain that is constant. She has had a previous tubal ligation as well as endometrial ablation and despite the endometrial ablation still has pelvic pain. On examination in the office her uterus was exquisitely tender. Hospital Course Hospital Course Hospital Course: On October 28, 2022 she underwent a laparoscopically assisted vaginal hysterectomy, left salpingo-oophorectomy, right salpingectomy. She has done well postoperatively and has remained afebrile throughout her hospitalization. She is eating and drinking and ambulating. Her pain is reasonably well controlled. She denies any shortness of breath, chest pain or calf tenderness. She is discharged home to follow-up with me in approximately 2 weeks time. She will continue with her pain medicine at home and have given her prescription for Percocet 5/325 number 20 tablets as well as Motrin 800 mg number 90 tablets. She was given the usual instructions with respect to limiting her activity, driving and sexual activity. She was given instructions with respect to wound care. Her condition on discharge is stable and improved. Exam Data for Last 24 hours Vital signs and Labs for Last 24 Hours: Temp Pulse Resp BP Pulse Ox O2 Del Method O2 Flow Rate 98.4 F 68 17 100/54 L 97 Room Air 4 10/29/22 07:45 10/29/22 07:45 10/29/22 07:45 10/29/22 07:45 10/29/22 07:45 10/29/22 07:45 10/28/22 10:15 Laboratory Results - last 24 hr 10/28/22 08:56: Urine Color Yellow, Urine Appearance Clear, Urine pH 5.0, Ur Specific [place] 1.025, Urine Protein Negative, Urine Glucose (UA) Negative, Urine Ketones 1+, Urine Blood 2+, Urine Nitrate Negative, Urine Bilirubin Negative, Urine Urobilinogen 0.2, Ur Leukocyte Esterase Negative, Urine RBC 5-10, Urine WBC Occasional, Ur Squamous Epith Cells Occasional, Urine Bacteria None 10/29/22 06:54: WBC 9.8, RBC 3.87 L, Hgb 11.7 L, Hct 36.1 L, MCV 93.1, MCH 30.2, MCHC 32.4, RDW 13.5, Plt Count 295, MPV 8.2, Neut % (Auto) 62.8, Lymph % (Auto) 29.9, [place] % (Auto) 5.1, Eos % (Auto) 1.9, Baso % (Auto) 0.3, Neut # (Auto) 6.1, Lymph # (Auto) 2.9, [place] # (Auto) 0.5, Eos # (Auto) 0.2, Baso # (Auto) 0.0, Sodium 140, Potassium 3.4 L, Chloride 110 H, Carbon Dioxide 21 L, Anion Gap 12.4, BUN 8, Creatinine 0.60, Estimated Creat Clear 193, Estimated GFR 114, Est GFR ( Amer) 138, Glucose 122 H, Calcium 8.1 L I & O for Last 24 hours: Intake & Output 10/26/22 10/27/22 10/28/22 10/29/22 11:59 11:59 11:59 11:59 Intake Total 850 / 850 0 / 0 Output Total 1875 / 1875 Balance 850 / 850 -1875 / -1875 Weight 204 lb Constitutional Constitutional: no acute distress *Routine HEENT Exam Head: Present normocephalic *Routine Respiratory Exam Respiratory: Present normal respiratory effort; Absent accessory muscle use *Routine Cardiovascular Exam Cardiovascular: Present RRR *Routine Abdominal Exam Abdominal: Present soft and normoactive bowel sounds; Absent distended Results Data Completed and Pending Labs on day of discharge: Labs from last 24 hours 10/29/22 10/28/22 06:54 08:56 WBC 9.8 RBC 3.87 L Hgb 11.7 L Hct 36.1 L MCV 93.1 MCH 30.2 MCHC 32.4 RDW 13.5 Plt Count 295 MPV 8.2 Neut % (Auto) 62.8 Lymph % (Auto) 29.9 [place] % (Auto) 5.1 Eos % (Auto) 1.9 Baso % (Auto) 0.3 Neut # (Auto) 6.1 Lymph # (Auto) 2.9 [place] # (Auto) 0.5 Eos # (Auto) 0.2 Baso # (Auto) 0.0 Sodium 140 Potassium 3.4 L Chloride 110 H Carbon Dioxide 21 L Anion Gap 12.4 BUN 8 Creatinine 0.60 Estimated Creat Clear 193 Estimated GFR 114 Est GFR ( Amer) 138 Glucose 122 H Calcium 8.1 L Urine Color Yellow Urine Appearance Clear Urine pH 5.0 Ur Specific [place] 1.025 Urine Protein Ne
--- NOTE | 2022-10-29 09:28 | PC.NURSE ---
D/C instructions reviewed with patient. Patient verbalized understanding of all instructions and denies having any questions. Pt. awaiting her spouse who lives approx 1 hour away.
--- NOTE | 2022-10-29 10:14 | PC.NURSE ---
Pt. given scheduled tylenol and toradol prior to discharge. Pt. states pain is 9/10, pt. is calm, smiles when talked to, in no distress.
== END 2022-10-29 10:35 | disposition home or self-care (01) ==
LOC: OB 08:45
PROVIDERS: Admitting Provider Nurse Practitioner Obstetrics & Gynecology; Visit Provider Nurse Practitioner Obstetrics & Gynecology
PROC: 0UT9FZZ Resection of Uterus, Via Natural or Artificial Opening With Percutaneous Endoscopic Assistance (ICD-10-PCS; CPT 58552; principal; 2022-10-28 07:30)
DX: R10.2 Pelvic and perineal pain (principal); N94.89 Other specified conditions associated with female genital organs and menstrual cycle; N94.6 Dysmenorrhea, unspecified; F17.210 Nicotine dependence, cigarettes, uncomplicated
CPT/HCPCS: 58552; 80048; 81001; 85025; 96374; G0378; J0131; J2405